=== PATIENT | female | born 1970 | race Caucasian/White ===

== ENCOUNTER 2022-10-31 10:03 | Outpatient (AMB) | payer BC, SELFPAY ==
--- NOTE | 2022-10-31 10:06 | A.OFFPC_ITS ---
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 Supervisor Waterproofing Required: No Accompanied by: Self / Same As Patient Allergies cephalexin [From Keflex] Allergy (Mild, Verified 10/31/22 10:24) Hives Medication List - Last Reconciled 10/31/22 by Laila Davalos MD dextroamphetamine-amphetamine 12.5 mg (Adderall) 12.5 mg PO BID fluconazole PO levonorgestrel (Mirena) intrauterine lisinopril 10 mg PO DAILY loratadine 10 mg PO DAILY Tobacco use date assessed: 10/31/22 Dental Screening Dental Screen Date: 10/31/22 Did you have a dental visit in the last 12 months?: Yes Did you have a dental problem in the last 6 months where you did not have access to dental care?: No Was dental information given to patient?: Patient has dentist 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 She has hypertension, and has been told that she has ADHD but has never been fully evaluated. Currently taking lisinopril 10 mg daily and Adderall 12.5 mg 1 tablet twice a day. Moved here from [place], has been took a new job here at [employer]. Patient states that she has 6 children, all home school, 3 of them her own and 3 of them adopted and with disabilities. Patient states that 1 of her child has mental health issues, currently in a Behavioral facility at present time. Moving to a new place has been very stressful, and she is starting to feel overwhelmed, has been finding it difficult to keep her focus and concentration with her day-to-day activities. Would like to be referred and evaluated for ADD and see if she can be placed back on her Adderall, which has helped be more focused in her day-to-day activities. [facility] Medical History (Updated 10/31/22 @ 11:07 by Laila Davalos MD) Essential hypertension Family history of colon cancer ADD (attention deficit disorder) Celiac disease Dysfunctional uterine bleeding Surgical History (Updated 10/31/22 @ 10:51 by Laila Davalos MD) Hx of colonoscopy S/P D&C (status post dilation and curettage) S/P dental synagogue Family History Mother Breast CA HTN (hypertension) Glaucoma Uterine cancer Father Skin cancer Frontal lobe dementia Brother Substance abuse Paternal Grandmother Mental health problem Maternal Grandfather Colon cancer Maternal Grandmother Breast CA Paternal Grandfather Myocardial infarction Coronary artery disease Social History Housing: House Alcohol intake: current Alcohol intake frequency: holidays/special occasions only Alcohol type: wine Patient Tobacco Use Status: Never used Tobacco e-Cigarette/Vaping Use: Never Used Second Hand Smoke Exposure: No service: No Current occupational status: unemployed 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 unsure date ) Questionnaire PHQ-9 Over the last 2 weeks, how often have you been bothered by any of the following problems? 1. Little interest or pleasure in doing things: not at all 2. Feeling down, depressed, or hopeless: not at all 3. Trouble falling or staying asleep, or sleeping too much: several days 4. Feeling tired or having little energy: not at all 5. Poor appetite or overeating: not at all 6. Feeling bad about yourself - or that you are a failure or have let yourself or your family down: not at all 7. Trouble concentrating on things, such as reading the newspaper or watching television: several days 8. Moving or speaking so slowly that other people could have noticed. Or the opposite - being so fidgety or restless that you have been moving around a lot more than usual: not at all 9. Thoughts that you would be better off or of hurting yourself in some way : not at all Total score: 2 Depression Screening Interpretation: Negative 93836 - PHQ-9 Billing: Yes Source: Developed by Drs. Marcelino Cisneros, Nakul Quijano and colleagues, with an educational bindu from [employer]. Thrive Questionnaire Date Thrive assessed: 10/31/22 I am a: Patient What is your living situation today?: I have a steady place to live Within the past 12 months, did the food you bought not last and you didn't have the money to get more?: Never true Within the past 12 months, did you worry whether your food would run out before you got money to buy more?: Never true Do you have trouble paying for medicines?: No Do you have trouble getting transportation to medical appointments?: No Do you have trouble paying your heating and electricity bill?: No Do you have trouble taking care of your child, family member or friend?: No Do you have trouble with day-to-day activities such as bathing, preparing meals, shopping, managing finances, etc.?: No Are you currently unemployed and looking for a job?: No Are you interested in more education?: No Please select the resources that you would like help with: None Currently or been in a relationship where the following occur: no concerns reported AUDIT C Alcohol Use Questionnaire (AUDIT-C) 1. How often do you have a drink containing alcohol?: Monthly or less 2. How many drinks containing alcohol do you have on a typical day when you are drinking?: 1 or 2 3. How often do you have six or more drinks on one occasion?: Never Total Score: 1 SHANTANU-7 AMB Questionnaire SHANTANU-7 Feeling nervous, anxious, or on edge: 1 = Several days Not being able to stop or control worryin = Several days Worrying too much about different things: 0 = Not at all Trouble relaxin = Several days Being so restless that it is hard to sit still: 1 = Several days Becoming easily annoyed or irritable: 0 = Not at all Feeling afraid as if something awful might happen: 0 = Not at all Total SHANTANU-7 score (0-4 normal; 5-9 mild; 10-14 moderate; 15-21 severe): 4 Source: Developed by Drs. Marcelino Cisneros, Nakul Quijano and colleagues, with an educational bindu from [employer]. SHANTANU-7 Assessment Billing SHANTANU-7 Assessment Tool: SHANTANU-7 Assessment 25652 Review of Systems Const Denies body aches, Denies daytime sleepiness, Denies difficulty sleeping, Denies fatigue, Denies fever(s), Denies headache(s) and Denies malaise Eyes Details: [facility] eye care Reports no additional complaints ENT Reports no additional complaints, Denies vertigo, Denies dizziness and Denies headache(s) Card Denies chest pain at rest, Denies chest pain with activity and Reports rapid heart rate (intermittent) Resp Reports no additional complaints GI Reports no additional complaints Reports no additional complaints Musc Reports no additional complaints, Denies abnormal gait, Denies numbness and Denies tingling Neuro Denies abnormal gait, Denies behavioral changes, Denies vertigo, Denies dizzi ness, Denies headache(s), Denies focal weakness, Denies numbness, Denies convulsions and Denies tingling Psych Denies behavioral changes Endo Denies fatigue Garry/Lymph Reports no additional complaints Aller/Immun Reports no additional complaints Physical exam (Primary Care) Vital Signs: Last Vital Signs Pulse 110 H 10/31/22 10:09 BP 130/70 10/31/22 10:09 Pulse Ox 98 10/31/22 10:09 Oxygen Delivery Method Room Air 10/31/22 10:09 BMI result Body Mass Index 21.4 Tobacco/Smoking Status: Tobacco use Status Tobacco use date assessed 10/31/22 10/31/22 10:19 Patient Tobacco Use Status Never used Tobacco 10/31/22 10:19 e-Cigarette/Vaping Use Never Used 10/31/22 10:19 PHQ-9: PHQ-9 Score PHQ-9: Total score 2 10/31/22 11:03 Depression Screening Interpretation: Negative Thrive Assessment: Date of Thrive Assessment Date Thrive assessed 10/31/22 10/31/22 10:22 Currently or been in a relationship where the following occur: no concerns reported Const General: comfortable, no acute distress and alert Orientation/consciousness: patient oriented x3 HENMT Ears: external ears normal, TM's normal bilaterally and EAC's normal General nose exam: Normal external nose present and No nasal discharge present Mouth: Normal oral and palatal mucosa present, oropharynx normal and moist mucous membranes Eyes General: appearance normal, both eyes and all related structures Conjunctivae: conjunctivae normal Sclerae: sclerae normal Pupils: Equal, round and reactive pupils present EOM: EOMs intact bilaterally Neck Neck: Yes full ROM, Yes no lymphadenopathy and Yes supple Resp Effort & Inspection: normal respiratory effort and able to speak in complete sentences Auscultation: clear to auscultation bilaterally Cardio Heart sounds: S1 normal heart sound present and S2 normal heart sound present GI Palpation (GI): Soft to palpation, nontender and no masses Auscultation: normal bowel sounds Back/Spine/Pelvis Back: No back tenderness Skin General skin exam: no rashes or lesions noted Neuro General: patient oriented x3, gait normal, tone normal, moves all extremities, Normal light touch and pain sensation and no focal motor deficits Cranial nerves: Yes CN's II-XII intact bilaterally and Yes Equal, round and reactive pupils present Cognition (Neuro): normal cognition Extrem General: Yes full ROM, Yes no joint enlargement, Yes no clubbing, cyanosis or edema and Yes no calf tenderness Psych Appearance: grossly normal and well kempt Mental Status: mental status grossly normal Speech and movement: Normal speech and movement present Affect: normal affect Attitude: cooperative Thought process: Normal thought process present Thought content: Normal thought content present and suicidality Assessment and Plan Assessment & Plan (1) Celiac disease: Code(s): K90.0 - Celiac disease Plan: Referred to GI Clinic for further evaluation management. (2) Family history of colon cancer: Code(s): Z80.0 - Family history of malignant neoplasm of digestive organs Plan: Referral to GI Clinic for evaluation for screening colonoscopy (3) Dysfunctional uterine bleeding: Code(s): N93.8 - Other specified abnormal uterine and vaginal bleeding Plan: Will check CBC, referred to OBGYN for consultation (4) Cervical cancer screening: Code(s): Z12.4 - Encounter for screening for malignant neoplasm of cervix Plan: Referral to OBGYN for her routine Pap and pelvic exam (5) Essential hypertension: Code(s): I10 - Essential (primary) hypertension Plan: Blood pressure at goal of less than 130/80. Continue with lisinopril 10 mg daily. Reinforced importance of following a low sodium diet, getting regular exercise, and lowering stress levels. (6) Tachycardia: Code(s): R00.0 - Tachycardia, unspecified Plan: CBC, TSH with free T4 and compressive metabolic panel ordered. EKG done today showed presence of sinus tachycardia with no acute ST-T changes (7) ADD (attention deficit disorder): Code(s): F98.8 - Other specified behavioral and emotional disorders with onset usually occurring in childhood and adolescence Plan: Referred to mental health counselor for assistance in getting in to be evaluated for possible ADD, and treated accordingly Orders: Orders MM screening mammo BI 10/31/22 Z12.31 - Encounter for screening mammogram for malignant neoplasm of breast Vitamin D 25-OH Total 10/31/22 I10 - Essential (primary) hypertension, N93.8 - Other specified abnormal uterine and vaginal bleeding, K90.0 - Celiac disease, R00.0 - Tachycardia, unspecified Complete Blood Count Auto Diff 10/31/22 I10 - Essential (primary) hypertension, N93.8 - Other specified abnormal uterine and vaginal bleeding, K90.0 - Celiac disease, R00.0 - Tachycardia, unspecified AMB EKG-In Office 10/31/22 R00.0 - Tachycardia, unspecified, I10 - Essential (primary) hypertension Lipid Panel 10/31/22 I10 - Essential (primary) hypertension, N93.8 - Other specified abnormal uterine and vaginal bleeding, K90.0 - Celiac disease, R00.0 - Tachycardia, unspecified Comprehensive Mason. Panel Fast 10/31/22 I10 - Essential (primary) hypertension, N93.8 - Other specified abnormal uterine and vaginal bleeding, K90.0 - Celiac disease, R00.0 - Tachycardia, unspecified TSH reflex Free T4 10/31/22 I10 - Essential (primary) hypertension, N93.8 - Other specified abnormal uterine and vaginal bleeding, K90.0 - Celiac disease, R00.0 - Tachycardia, unspecified Referrals RESTAURANT HOST/HOSTESS Referral N93.8 - Other specified abnormal uterine and vaginal bleeding, Z12.4 - Encounter for screening for malignant neoplasm of cervix Gastroenterology Referral K90.0 - Celiac disease, Z80.0 - Family history of malignant neoplasm of digestive organs, Z98.890 - Other specified postprocedural states Medications: New loratadine 10 mg PO DAILY levonorgestrel (Mirena) intrauterine Coding Level of Care Code New Pt Level 4 (03764) Diagnoses Celiac disease K90.0 Family history of colon cancer Z80.0 Dysfunctional uterine bleeding N93.8 Cervical cancer screening Z12.4 Essential hypertension I10 Tachycardia R00.0 ADD (attention deficit disorder) F98.8 Additional Codes SHANTANU-7 Assessment Billing - SHANTANU-7 Assessment Tool: SHANTANU-7 Assessment 85296 ([id number])
[2022-10-31 10:09] VITALS: BP 130/70; PULSE 110; O2SAT 98; BMI 21.4
== END 2022-10-31 12:11 | disposition home or self-care (01) ==
PROVIDERS: Visit Provider Internal Medicine
DX: I10 Essential (primary) hypertension (principal); K90.0 Celiac disease; Z80.0 Family history of malignant neoplasm of digestive organs; N93.8 Other specified abnormal uterine and vaginal bleeding; R00.0 Tachycardia, unspecified; F98.8 Other specified behavioral and emotional disorders with onset usually occurring in childhood and adolescence
CPT/HCPCS: 99204

== ENCOUNTER 2022-12-06 06:31 | Outpatient (REF) | payer BC, SELFPAY ==
[2022-12-06 12:13] LABS: MANUAL DIFF FLAG NO
[2022-12-06 12:27] LABS: Eosinophils Absolute Auto 0.1 X10*3/uL (0.0-0.4); Eosinophils Percent Auto 2.2 % (0-4); Hemoglobin 14.1 g/dl (12.0-16.0); Imm Gran Abs Auto 0.01 X10*3/uL (0.00-0.03); Imm Gran Pct Auto 0.2 % (0.0-0.4); Lymphocytes Percent Auto 25.1 % (20-40); Mean Corpuscular HGB Conc 33.6 g/dl (31.0-35.0); Mean Corpuscular Hemoglobin 33.2 pg (27.0-33.0); Mean Corpuscular Volume 98.8 fL (80.0-98.0); Mean Platelet Volume 10.5 fL (9.4-12.3); Monocytes Absolute Auto 0.6 X10*3/uL (0.1-1.2); Monocytes Percent Auto 13.8 % (2-11); Neutrophils Absolute Auto 2.4 x10*3/uL (2.0-8.3); Neutrophils Percent Auto 57.7 % (45-73); Platelet Count 243 X10*3/uL (160-400); Red Blood Count 4.25 X10*6/uL (4.20-5.50); Red Cell Distribution Width 11.9 % (11.0-16.0); White Blood Count 4.1 X10*3/uL (4.8-10.8)
[2022-12-06 13:09] LABS: Alanine Aminotransferase 316 U/L (0-31); Albumin Level 4.9 g/dL (3.5-5.0); Alkaline Phosphatase 152 U/L (39-117); Anion Gap 13 (12-20); Aspartate Amino Transferase 330 U/L (5-31); Bilirubin Total 0.6 mg/dL (0.0-1.0); Blood Urea Nitrogen 15 mg/dL (9-16); Calcium 10.8 mg/dL (8.4-10.2); Carbon Dioxide 28 mmol/L (22-29); Chloride 103 mmol/L (96-108); Cholesterol 355 mg/dL (<200); Estimated Glomerular Filt Rate > 60; Glucose Fasting 100 mg/dL (60-99); HDL Cholesterol 110 mg/dL (>40); LDL Cholesterol Calculated 223 mg/dL (<100); Potassium 4.3 mmol/L (3.3-5.1); Sodium 140 mmol/L (135-145); Total Protein 7.6 g/dL (6.5-8.0); Triglycerides 111 mg/dL (<150)
[2022-12-06 13:14] LABS: TSH reflex Free T4 2.43 uIU/mL (0.32-4.0); Vitamin D 25-OH Total 91.9 ng/mL (>30)
== END 2022-12-06 06:32 | disposition home or self-care (01) ==
LOC: HO.HMGCLDS 06:31
PROVIDERS: PCP Internal Medicine; Visit Provider Internal Medicine
DX: I10 Essential (primary) hypertension (principal); N93.8 Other specified abnormal uterine and vaginal bleeding; R00.0 Tachycardia, unspecified; K90.0 Celiac disease
CPT/HCPCS: 36415; 80053; 80061; 82306; 84443; 85025

== ENCOUNTER 2022-12-12 06:46 | Outpatient (REF) | payer BC, SELFPAY ==
[2022-12-12 12:02] LABS: Gamma Glutamyl Transpeptidase 1241 U/L (7-33)
[2022-12-13 04:27] LABS: HBS Num1 77.52 mIU/mL (0-7.99); HBc Num1 0.05 S/CO (0.00-0.79); HBsAGNum1 0.27 S/CO (0.00-0.99); Hepatitis B Core Antibody Nonreactive (Nonreactive); Hepatitis B Surface Antigen Negative (Negative); ~HepC Num1 0.16 S/CO (0.00-0.79); ~Hepatitis B Surface Antibody REACTIVE (Nonreactive); ~Hepatitis C Antibody Nonreactive (Nonreactive)
[2022-12-14 05:03] LABS: Lyme Abs Screen <0.90 index
[2022-12-14 16:19] LABS: Calcium (PTHI) 9.8 mg/dL (8.6-10.4); PTHI 27 pg/mL (16-77)
[2022-12-16 02:44] LABS: Calcium, Ionized 5.1 mg/dL (4.7-5.5)
== END 2022-12-12 06:47 | disposition home or self-care (01) ==
LOC: HO.HMGCLDS 06:46
PROVIDERS: PCP Internal Medicine; Visit Provider Internal Medicine
DX: R74.01 Elevation of levels of liver transaminase levels (principal); I10 Essential (primary) hypertension; E83.52 Hypercalcemia; E78.5 Hyperlipidemia, unspecified
CPT/HCPCS: 36415; 82330; 82977; 83970; 86617; 86618; 86704; 86706; 86803; 87340

== ENCOUNTER 2022-12-22 08:51 | Outpatient (REF) | payer BC, SELFPAY | END 2022-12-22 08:52 | disposition home or self-care (01) | LOC: HO.HMGCX 08:51 | PROVIDERS: PCP Internal Medicine; Visit Provider Internal Medicine | DX: R74.01 Elevation of levels of liver transaminase levels (principal); E78.5 Hyperlipidemia, unspecified | CPT/HCPCS: 76700 ==

== ENCOUNTER 2023-01-01 07:47 | Outpatient (AMB) | payer BC, SELFPAY ==
--- NOTE | 2023-01-01 07:48 | MHC.OFFVIS ---
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 No complaints. The patient had Mirena IUD inserted in 2019 since then has amenorrhea Last Pap/HPV was many years ago Last Mammogram was more than 1 year ago, the patient scheduled for another mammogram in 2 weeks Last Colonoscopy was 5 years ago, the patient is scheduled for a GI consult for screening colonoscopy in 2 weeks PFS Medical History Hypercalcemia Hyperlipidemia LDL goal <130 Elevated transaminase level Essential hypertension Family history of colon cancer ADD (attention deficit disorder) Celiac disease Dysfunctional uterine bleeding Surgical History Hx of colonoscopy S/P D&C (status post dilation and curettage) S/P dental islam Family History Mother Breast CA HTN (hypertension) Glaucoma Uterine cancer Father Skin cancer Frontal lobe dementia Brother Substance abuse Paternal Grandmother Mental health problem Maternal Grandfather Colon cancer Maternal Grandmother Breast CA Paternal Grandfather Myocardial infarction Coronary artery disease Social History Housing: House Alcohol intake: current Alcohol intake frequency: holidays/special occasions only Alcohol type: wine Patient Tobacco Use Status: Never used Tobacco e-Cigarette/Vaping Use: Never Used Second Hand Smoke Exposure: No service: No Current occupational status: unemployed 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, 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 Current occupational exposures/hazards: No Cognitive needs: No Hearing needs: No Vision needs: Yes Female Reproductive History Menstrual control method: progestin IUCD Total pregnancies: 4 Full term: 4 Number of Living Children: 7 Review of Systems Const All systems reviewed & are unremarkable except as noted in HPI and below Card Reports as per HPI Resp Reports as per HPI GI Reports as per HPI and Reports no additional complaints Reports as per HPI Physical Exam Vital Signs: BMI result Body Mass Index 21.3 Const General: cooperative, healthy appearing and comfortable Chest Chest palpation & inspection: normal inspection of the chest and normal palpation of entire chest wall Breast/axilla inspection: normal inspection of the breasts and normal inspection of the axillae Breast/axilla palpation: normal palpation of the breasts, normal palpation of the axillae and no axillary lymphadenopathy Resp Effort & Inspection: normal respiratory effort Auscultation: clear to auscultation bilaterally Percussion: percussion normal Cardio Palpation: normal PMI Rate: regular rate Rhythm: regular rhythm Heart sounds: no murmurs and no rubs Peripheral pulses: Peripheral pulses 2+ throughout GI Inspection: Yes normal to inspection Palpation (GI): Soft to palpation, nontender, no guarding, not rigid and No hepatosplenomegaly present Percussion: Yes normal to percussion Auscultation: normal bowel sounds Rectal Exam - Female: deferred General: Yes bladder normal to palpation External Female Exam: No lesion Speculum Exam - Vagina: normal appearance of the vagina, normal palpation, normal vaginal discharge and not erythematous Speculum Exam - Cervix: normal appearance of the cervix and normal palpation Bimanual exam- vagina & uterus: normal bimanual exam, normal palpation, uterine size normal, bladder normal to palpation, consistency normal and normal palpation Bimanual Exam- Adnexa, other: normal adnexae, no masses and no tenderness Office Procedures IUD Insert/Removal Details Details: Counseling/Consent: After discussing with the patient the risks of the procedure including bleeding, infection, scar tissue formation, , possible injury to blood vessels or nerves, chronic arm pain, blood transfusion, and irregular unpredictable bleeding Alternative options were discussed with the patient including but not limited: Do nothing. The patient signed the consent and agreed with the plan; all questions answered. Urine test was done in the office and was negative Preop dx: Requesting IUD removal Op: IUD removal Post op dx: same EBL= 10 cc Procedure: The patient was put in the dorsal lithotomy position a speculum was inserted in the vagina the IUD thread identified. Using a Marli clamp the thread was grasped and the IUD pulled out with no complications. The patient tolerated the procedure well and was advised to use a different method for contraception. Discharge instructions: Instructions were given to the pt to call if temp>100.4, abdominal pain heavy vaginal bleeding, n/v occur. The patient verbalized understanding and all questions answered. This note was generated with a voice recognition program. Some errors may have been overlooked during the review of this note. Sometimes these errors may affect the content or meaning of a given sentence. 97099-DLF Removal Procedure code (CPT) selection complete Assessment & Plan Assessment & Plan (1) Well woman exam: Code(s): Z01.419 - Encounter for gynecological examination (general) (routine) without abnormal findings Plan: Co testing done. Counseled the patient about the recommended dietary allowance of 1200 mg of Calcium & 600 IU of vitamin D. Mammogram ordered and scheduled in 2. The patient is scheduled in 2 weeks with GI for a consult regarding screening colonoscopy . The patient was instructed to perform monthly self-breast exams and schedule annual exam in a year. All questions answered and the patient verbalized understanding. (2) Family history of breast cancer: Code(s): Z80.3 - Family history of malignant neoplasm of breast Plan: Calculated [facility] lifetime breast cancer risk was 17.3%. Discussed the patient elevated breast cancer but not above 20% therefore will hold off high-risk protocol unless mammogram report calculated breast cancer risk is above 20%. (3) Encounter for IUD removal: Code(s): Z30.432 - Encounter for removal of intrauterine contraceptive device Plan: Discussed the patient Mirena IUD benefits and risks. Average age of menopause being 53. Potential risk of long-term use of Mirena IUD with increasing breast cancer. After discussion all the pros and cons , risks and benefits of keeping IUD in utero versus taking it out, the patient requested IUD removal, IUD removed, see procedure note. Instructions given the patient to call in case of vaginal bleeding. All questions answered, the patient verbalized understanding Orders: Orders Pap Smear Today Z01.419 - Encounter for gynecological examination (general) (routine) without abnormal findings Coding Level of Care Code New Pt Prev Care 40-64y(16741) Diagnoses Well woman exam Z01.419 Family history of breast cancer Z80.3 Encounter for IUD removal Z30.432 CPT Codes Details - CPT: 41314-ZSS Removal ([id number])
[2023-01-01 07:51] VITALS: BP 102/60; BMI 21.3
== END 2023-01-01 08:27 | disposition home or self-care (01) ==
PROVIDERS: PCP Internal Medicine; Visit Provider Obstetrics & Gynecology
DX: Z01.419 Encounter for gynecological examination (general) (routine) without abnormal findings (principal); Z80.3 Family history of malignant neoplasm of breast; Z30.432 Encounter for removal of intrauterine contraceptive device
CPT/HCPCS: 58301; 99386

== ENCOUNTER 2023-01-01 07:47 | Outpatient (REF) | payer BC, SELFPAY ==
[2023-01-04 04:09] LABS: HPV mRNA E6/E7 rflx Not Detected (Not Detected)
== END 2023-01-01 07:48 | disposition home or self-care (01) ==
LOC: HO.LNP 07:47
PROVIDERS: PCP Internal Medicine; Visit Provider Obstetrics & Gynecology
DX: Z30.432 Encounter for removal of intrauterine contraceptive device (principal)
CPT/HCPCS: 58301; 87624; 88142

== ENCOUNTER 2023-01-03 09:35 | Outpatient (AMB) | payer BC, SELFPAY ==
--- NOTE | 2023-01-03 09:46 | A.OFFVIS_ITS ---
Intake Intake Visit Reasons: Celiac Intake Note: Patient follow up for Celiac disease. Patient cc: diarrhea and nauseas on and off, also abdominal pain with bloating every 2 weeks. Deniesany other GI issues. Air Intelligence Specialist Required: No Allergies cephalexin [From Keflex] Allergy (Mild, Verified 01/03/23 09:46) Hives HPI HPI Comments History of Present Illness Details 52 y.o F with PMH of celiac disease who is here to establish care for celiac disease. Reports getting diagnosed with celiac in 2009 for abdominal pain, bloating and diarrhea at [facility]. Reports anemia in 2019 which was attributed to abnormal uterine bleeding which has now resolved since getting IUD. Has been adhering to GFD. No fam hx of celiac but grandmother had RA. Pt also reports pain in small joints of hands. Currently main sx are intermittent diarrhea without any abdominal pain or cramping. Every 1-2 weeks she will have a bout of having 5-6 loose BMs in the morning spaced out by 5-10 minutes and then it would resolve. Of note, sx started shortly after getting her hormonal IUD. However, reports she just got it out 2 days ago. Of note, on review of labs also noted to have elevated LFTs. Does not report drinking heavily. 1-2 glasses of wine on weekends. In terms of CRC screening, last colonoscopy was 5 years ago. Patient reports having 2 polyps removed and being given a 5 year interval. [facility] Medical History Hypercalcemia Hyperlipidemia LDL goal <130 Elevated transaminase level Essential hypertension Family history of colon cancer ADD (attention deficit disorder) Celiac disease Dysfunctional uterine bleeding Surgical History Hx of colonoscopy S/P D&C (status post dilation and curettage) S/P dental restorationism Family History Mother Breast CA HTN (hypertension) Glaucoma Uterine cancer Father Skin cancer Frontal lobe dementia Brother Substance abuse Paternal Grandmother Mental health problem Maternal Grandfather Colon cancer Maternal Grandmother Breast CA Paternal Grandfather Myocardial infarction Coronary artery disease Social History Housing: House Alcohol intake: current Alcohol intake frequency: holidays/special occasions only Alcohol type: wine Patient Tobacco Use Status: Never used Tobacco e-Cigarette/Vaping Use: Never Used Second Hand Smoke Exposure: No service: No Current occupational status: unemployed 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 Nontoxic appearing Speaking in full sentences No facial asymmetry. Assessment & Plan Assessment & Plan (1) Celiac disease: Code(s): K90.0 - Celiac disease (2) Elevated transaminase level: Code(s): R74.01 - Elevation of levels of liver transaminase levels (3) Personal history of colonic polyps: Code(s): Z86.010 - Personal history of colonic polyps Plan 1. Celiac disease: Fairly well controlled with dietary discretion. Intermittent episodic diarrhea does not appear to be related to celiac disease, and wonder if it was due to the hormonal IUD given temporarility. Patient advised to keep a symptom diary now that the IUD is out. Plan: -labs ordered for macro and micronutrient deficiency monitoring -celiac serology ordered for disease monitoring -will also set her up for an EGD for small-bowel biopsy. 2. Elevated LFTs: In the context of well-controlled celiac disease, do not expect these to be high, and therefore celiac serology ordered as above to correlate. Other differentials include autoimmune hepatitis specially given the extent of transaminase elevation and underlying celiac disease. Hepatitis serology negative. Plan: -repeat LFTs ordered -workup ordered as below for iron overload, Kar's, alpha-1 antitrypsin, autoimmune hepatitis -further evaluation pending results 3. Personal history of polyps Due for colonoscopy, which can be set up at the same time as the upper endoscopy (see above). Plan: -colonoscopy to be booked on an elective basis -split PEG prep instructions reviewed with the patient. She was also given instructions on accessing instructions on line. Follow up after the procedures Orders: Orders IRON PROFILE Today R74.01 - Elevation of levels of liver transaminase levels Ferritin Today R74.01 - Elevation of levels of liver transaminase levels Alpha 1 Anti-trypsin Today R74.01 - Elevation of levels of liver transaminase levels Hepatitis A IgG Today R74.01 - Elevation of levels of liver transaminase levels Hepatitis B Surface Antigen Today R74.01 - Elevation of levels of liver transaminase levels Hepatitis C Antibody Today R74.01 - Elevation of levels of liver transaminase levels Immunoglobulin A Today K90.0 - Celiac disease Immunoglobulin G Today R74.01 - Elevation of levels of liver transaminase levels Liver Kidney Microsomal Ab Today R74.01 - Elevation of levels of liver transaminase levels Vitamin B12 and Folate Today R74.01 - Elevation of levels of liver transaminase levels TSH reflex Free T4 Today R74.01 - Elevation of levels of liver transaminase levels Transglutaminase IgA Today K90.0 - Celiac disease Prothrombin Time INR Today R74.01 - Elevation of levels of liver transaminase levels Liver Panel Today R74.01 - Elevation of levels of liver transaminase levels Mitochondrial Antibody Today R74.01 - Elevation of levels of liver transaminase levels Phosphatidylethanol, Blood Today R74.01 - Elevation of levels of liver transaminase levels Copper, serum Today K90.0 - Celiac disease Magnesium Today K90.0 - Celiac disease Selenium, Serum Today K90.0 - Celiac disease Vitamin B1 Today K90.0 - Celiac disease Vitamin B6 Today K90.0 - Celiac disease Vitamin A Today K90.0 - Celiac disease Ceruloplasmin Today R74.01 - Elevation of levels of liver transaminase levels Hepatitis B Core Antibody Today R74.01 - Elevation of levels of liver transaminase levels Hepatitis B Surface Antibody Today R74.01 - Elevation of levels of liver transaminase levels Smooth Muscle Antibody Today R74.01 - Elevation of levels of liver transaminase levels Gliadin Ab Panel Today K90.0 - Celiac disease FRANCISCO Reflex Titer and Pattern Today R74.01 - Elevation of levels of liver transaminase levels Zinc Today K90.0 - Celiac disease Complete Blood Count no Diff Today K90.0 - Celiac disease Telehealth Telehealth Location of provider rendering services: practice address Location of patient: address on file Patient Identification confirmed using: Name, : Yes Telehealth method: video Patient verbally consented to treatment: Yes Patient verbally consented to billing insurance company: Yes Patient informed of any privacy concerns related to visit: Yes Minutes spent on Phone/Video with Pt.: 20 Coding Level of Care Code Tele New Pt Level 5 (44189) Diagnoses Celiac disease K90.0 Elevated transaminase level R74.01 Personal history of colonic polyps Z86.010
== END 2023-01-03 10:51 | disposition home or self-care (01) ==
LOC: HO.HGI 09:35
PROVIDERS: PCP Internal Medicine; Visit Provider Internal Medicine
DX: K90.0 Celiac disease (principal); R74.01 Elevation of levels of liver transaminase levels; Z86.010 Personal history of colon polyps
CPT/HCPCS: 99202

== ENCOUNTER → 2023-01-03 09:35 | Outpatient (BNVA) | payer BC, SELFPAY | PROVIDERS: PCP Internal Medicine; Visit Provider Internal Medicine ==

== ENCOUNTER 2023-01-03 10:49 | Outpatient (REF) | payer BC, SELFPAY ==
[2023-01-03 13:59] LABS: INTERNATIONAL NORM RATIO 0.9 (0.9-1.1); Prothrombin Time 11.3 SEC (11.1-13.3)
[2023-01-03 14:00] LABS: Hematocrit 43.1 % (37.0-47.0); Hemoglobin 14.2 g/dl (12.0-16.0); Mean Corpuscular HGB Conc 32.9 g/dl (31.0-35.0); Mean Corpuscular Hemoglobin 32.8 pg (27.0-33.0); Mean Corpuscular Volume 99.5 fL (80.0-98.0); Mean Platelet Volume 11.4 fL (9.4-12.3); Platelet Count 264 X10*3/uL (160-400); Red Blood Count 4.33 X10*6/uL (4.20-5.50); Red Cell Distribution Width 11.2 % (11.0-16.0); White Blood Count 5.7 X10*3/uL (4.8-10.8)
[2023-01-03 14:29] LABS: Alanine Aminotransferase 290 U/L (0-31); Albumin Level 4.7 g/dL (3.5-5.0); Alkaline Phosphatase 163 U/L (39-117); Aspartate Amino Transferase 186 U/L (5-31); Bilirubin Direct 0.1 mg/dL (0.0-0.5); Bilirubin Total 0.3 mg/dL (0.0-1.0); Ferritin 894 ng/mL (10-250); Iron 111 mcg/dL (30-160); Percent Iron Saturation 29 % (15-50); TSH reflex Free T4 1.74 uIU/mL (0.32-4.0); Total Iron Binding Capacity 379 mcg/dL (228-428); Total Protein 7.8 g/dL (6.5-8.0); Unsaturated Iron Binding 268 ug/dL
[2023-01-03 14:38] LABS: Vitamin B12 715 pg/mL (200-900)
[2023-01-04 12:04] LABS: Immunoglobulin A 154 mg/dL (47-310); Immunoglobulin G 542 mg/dL (600-1640)
[2023-01-04 14:44] LABS: Anti Nuclear Antibody Screen NEGATIVE (NEGATIVE)
[2023-01-04 16:09] LABS: Alpha 1 Anti-trypsin 182 mg/dL (83-199); Ceruloplasmin 31 mg/dL (18-53)
[2023-01-04 18:18] LABS: Gliadin Deamidated IgA Ab <1.0 U/mL; Gliadin Deamidated IgG Ab <1.0 U/mL; Transglutaminase IgA <1.0 U/mL
[2023-01-05 07:49] LABS: HBS Num1 89.28 mIU/mL (0-7.99); HBc Num1 0.05 S/CO (0.00-0.79); HBsAGNum1 0.34 S/CO (0.00-0.99); Hepatitis A Antibody IgG Nonreactive (Nonreactive); Hepatitis B Core Antibody Nonreactive (Nonreactive); Hepatitis B Surface Antigen Negative (Negative); ~HepC Num1 0.17 S/CO (0.00-0.79); ~Hepatitis A Antibody IgG 0.22 S/CO (0.00-0.99); ~Hepatitis B Surface Antibody REACTIVE (Nonreactive); ~Hepatitis C Antibody Nonreactive (Nonreactive)
[2023-01-05 21:29] LABS: Zinc 92 mcg/dL (60-130)
[2023-01-06 15:20] LABS: Copper, serum 136 mcg/dL (70-175); Selenium, Serum 145 mcg/L (63-160)
[2023-01-07 22:23] LABS: Liver Kidney Microsomal Ab <=20.0 U (<=20.0)
[2023-01-07 22:43] LABS: Smooth Muscle Antibody <20 U (<20)
[2023-01-08 15:23] LABS: Mitochondrial Antibodies NEGATIVE (NEGATIVE)
[2023-01-08 18:34] LABS: Vitamin A 63 mcg/dL (38-98)
[2023-01-09 11:54] LABS: Vitamin B6 12.3 ng/mL (2.1-21.7)
[2023-01-10 14:18] LABS: Vitamin B1 11 nmol/L (8-30)
== END 2023-01-03 10:50 | disposition home or self-care (01) ==
LOC: HO.HMGCLDS 10:49
PROVIDERS: PCP Internal Medicine; Visit Provider Internal Medicine
DX: K90.0 Celiac disease (principal); R74.01 Elevation of levels of liver transaminase levels; Z86.010 Personal history of colon polyps
CPT/HCPCS: 36415; 80076; 80321; 82103; 82390; 82525; 82607; 82728; 82746; 82784; 83540; 83735; 84207; 84255; 84425; 84443; 84590; 84630; 85027; 85610; 86015; 86038; 86258; 86364; 86376; 86381; 86704; 86706; 86708; 86803; 87340

== ENCOUNTER 2023-01-04 10:44 | Outpatient (AMB) | payer BC, SELFPAY ==
[2023-01-04 10:59] VITALS: BP 108/74; PULSE 111; O2SAT 100; BMI 21.4
--- NOTE | 2023-01-04 10:59 | A.OFFPC_ITS ---
Vital Signs 01/04/23 10:59 Height 5 ft 3.5 in Weight 123 lb BMI 21.4 BP 108/74 Blood Pressure Location Lt brachial Position Sitting Pulse 111 H Pulse Source Pulse Oximeter Pulse Oximetry (%) 100 Oxygen Delivery Method Room Air Intake Visit Reasons: Follow up labs and ultrasound Intake Note: pt is here to get her lab results and ultrasound results Allergies cephalexin [From Keflex] Allergy (Mild, Verified 01/06/23 03:37) Hives Medication List - Last Reconciled 01/06/23 by Laila Davalos MD lisinopril 10 mg PO DAILY loratadine 10 mg PO DAILY peg 3350-electrolytes 236-22.74-6.74 -5.86 gram (Golytely) 240 mL PO Q10M Tobacco use date assessed: 01/04/23 Dental Screening Dental Screen Date: 01/04/23 Did you have a dental visit in the last 12 months?: Yes Did you have a dental problem in the last 6 months where you did not have access to dental care?: No Was dental information given to patient?: Patient has dentist HPI Follow up labs and ultrasound HPI Details 52-year-old lady, with hypertension, and diagnosed to have celiac disease several years ago, here today for follow-up she was noted to have markedly elevated transaminases, and elevated GGT, her thyroid stimulating hormone, and hepatitis serology all came back negative. She still is having intermittent episodes of loose stools without any abdominal pain or cramping which she states started after she had her IUD inserted, latter however was just removed 2 days ago. She does not drink heavily, occasionally gets 2 glasses a wine during weekends. Abdominal ultrasound showed presence of stay at hepatitis. Fasting labs also showed presence of markedly elevated lipid levels with the total cholesterol 355 and LDL cholesterol at 223, , and HDL at 110 mg/dL Laboratory Tests 12/06/22 12/06/22 12/06/22 06:44 06:44 06:44 AST 330 H ALT 316 H Alkaline Phosphata se Total Protein Albumin Rvyqf-0-Djacmunacc n Ceruloplasmin Triglycerides 111 Cholesterol 355 H LDL Cholesterol, C alc 223 H HDL Cholesterol 110 12/12/22 12/12/22 01/03/23 06:55 06:55 10:55 WBC 5.7 RBC 4.33 Hgb 14.2 Hct 43.1 MCV 99.5 H MCH 32.8 MCHC 32.9 RDW 11.2 Plt Count 264 PT 11.3 INR 0.9 Magnesium 2.0 Iron 111 TIBC 379 % Saturation 29 Unsat Iron Binding 268 Ferritin 894 H Total Bilirubin Direct Bilirubin GGT 1241 H PTH Intact 27 Calcium (PTH Intac t) 9.8 01/03/23 01/03/23 01/03/23 10:55 10:55 10:55 Total Bilirubin 0.3 Direct Bilirubin 0.1 GGT AST 186 H ALT 290 H Alkaline Phosphata se 163 H Total Protein 7.8 Albumin 4.7 Vfqmp-8-Faehfrlbnt n 182 Ceruloplasmin 31 Vitamin B12 715 Folate 12.0 01/03/23 10:55 TSH 1.74 Zinc 92 Hepatitis A IgG Ab Nonreactive Hep Bs Antigen Negative Hep Bs Antibody REACTIVE Hep B Core Total A b Nonreactive Hepatitis C Ab (EI A) Nonreactive PFS Medical History (Updated 01/06/23 @ 03:54 by Laila Davalos MD) Hypercalcemia Hyperlipidemia LDL goal <130 Elevated transaminase level Essential hypertension Family history of colon cancer ADD (attention deficit disorder) Celiac disease Dysfunctional uterine bleeding Surgical History Hx of colonoscopy S/P D&C (status post dilation and curettage) S/P dental jewish Family History Mother Breast CA HTN (hypertension) Glaucoma Uterine cancer Father Skin cancer Frontal lobe dementia Brother Substance abuse Paternal Grandmother Mental health problem Maternal Grandfather Colon cancer Maternal Grandmother Breast CA Paternal Grandfather Myocardial infarction Coronary artery disease Social History Housing: House Alcohol intake: current Alcohol intake frequency: holidays/special occasions only Alcohol type: wine Patient Tobacco Use Status: Never used Tobacco e-Cigarette/Vaping Use: Never Used Second Hand Smoke Exposure: No service: No Current occupational status: unemployed 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, 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 How often do you have a drink containing alcohol?: 2-4 times a month 2. How many drinks containing alcohol do you have on a typical day when you are drinking?: 1 or 2 3. How often do you have six or more drinks on one occasion?: Never Total Score: 2 SHANTANU-7 AMB Questionnaire SHANTANU-7 Feeling nervous, anxious, or on edge: 1 = Several days Not being able to stop or control worryin = Several days Worrying too much about different things: 0 = Not at all Trouble relaxin = Several days Being so restless that it is hard to sit still: 1 = Several days Becoming easily annoyed or irritable: 0 = Not at all Feeling afraid as if something awful might happen: 0 = Not at all Total SHANTANU-7 score (0-4 normal; 5-9 mild; 10-14 moderate; 15-21 severe): 4 Source: Developed by Drs. Marcelino Cisneros, Lien Ramirez, Nakul Delatorre and colleagues, with an educational bindu from [employer]. Review of Systems Const Denies fever(s), Denies headache(s) and Denies malaise Eyes Details: [facility] eye care Reports no additional complaints ENT Denies vertigo, Denies dizziness and Denies headache(s) Card Denies chest pain at rest, Denies chest pain with activity and Reports rapid heart rate (intermittent) Resp Reports no additional complaints GI Reports as per HPI Reports no additional complaints Musc Denies abnormal gait, Denies numbness and Denies tingling Neuro Denies abnormal gait, Denies behavioral changes, Denies vertigo, Denies dizziness, Denies headache(s), Denies focal weakness, Denies numbness, Denies convulsions and Denies tingling Psych Denies behavioral changes Endo Reports no additional complaints Garry/Lymph Reports no additional complaints Aller/Immun Reports no additional complaints Physical exam (Primary Care) Vital Signs: Last Vital Signs Pulse 111 H 01/04/23 10:59 BP 108/74 01/04/23 10:59 Pulse Ox 100 01/04/23 10:59 Oxygen Delivery Method Room Air 01/04/23 10:59 BMI result Body Mass Index 21.4 Tobacco/Smoking Status: Tobacco use Status Tobacco use date assessed 01/04/23 01/04/23 11:04 Patient Tobacco Use Status Never used Tobacco 01/04/23 11:04 e-Cigarette/Vaping Use Never Used 01/04/23 11:04 Thrive Assessment: Date of Thrive Assessment Date Thrive assessed 10/31/22 01/04/23 11:04 Const General: comfortable, no acute distress and alert Orientation/consciousness: patient oriented x3 HENMT General nose exam: Normal external nose present and No nasal discharge present Mouth: Normal oral and palatal mucosa present, oropharynx normal and moist mucous membranes Eyes General: appearance normal, both eyes and all related structures Conjunctivae: conjunctivae normal Sclerae: sclerae normal Pupils: Equal, round and reactive pupils present EOM: EOMs intact bilaterally Neck Neck: Yes full ROM, Yes no lymphadenopathy and Yes supple Resp Effort & Inspection: normal respiratory effort and able to speak in complete sentences Auscultation: clear to auscultation bilaterally Cardio Heart sounds: S1 normal heart sound present and S2 normal heart sound present GI Palpation (GI): Soft to palpation, nontender and no masses Auscultation: normal bowel sounds Back/Spine/Pelvis Back: No back tenderness Skin General skin exam: no rashes or lesions noted Neuro General: patient oriented x3, gait normal, tone normal, moves all extremities, Normal light touch and pain sensation and no focal motor deficits Cranial nerves: Yes CN's II-XII intact bilaterally and Yes Equal, round and reactive pupils present Cognition (Neuro): normal cognition Extrem General: Yes full ROM, Yes no joint enlargement, Yes no clubbing, cyanosis or edema and Yes no calf tenderness Assessment and Plan Assessment & Plan (1) Hyperlipidemia LDL goal <130: Code(s): E78.5 - Hyperlipidemia, unspecified Plan: Will hold off on giving any statin at present time due to elevated liver enzymes. Strongly advised patient to adhere to a low-cholesterol diet, start getting regular exercise, (2) Elevated transaminase level: Code(s): R74.01 - Elevation of levels of liver transaminase levels Plan: Abstain from alcohol. Recently seen by GI, who states that celiac disease is fairly well controlled and does not feel that this was the reason for her recurrent diarrhea. Celiac serology and repeat LFT were ordered as well as workup for iron overload as her ferritin was elevated. Her hepatitis serology all came back negative, currently ordered a workup for possible autoimmune hepatitis . She is to be scheduled for an EGD for small-bowel biopsy. (3) Essential hypertension: Code(s): I10 - Essential (primary) hypertension Plan: Blood pressure at goal of less than 130/80. Continue with current medication. Reinforced importance of following a low sodium diet, getting regular exercise, and lowering stress levels. Patient noted to have elevated heart rate, likely due to anxiety. CBC, TSH all came back within normal limits Coding Level of Care Code Est Pt Level 4 (32019) Diagnoses Hyperlipidemia LDL goal <130 E78.5 Elevated transaminase level R74.01 Essential hypertension I10
== END 2023-01-04 12:41 | disposition home or self-care (01) ==
PROVIDERS: PCP Internal Medicine; Visit Provider Internal Medicine
DX: E78.5 Hyperlipidemia, unspecified (principal); R74.01 Elevation of levels of liver transaminase levels; I10 Essential (primary) hypertension
CPT/HCPCS: 99214

== ENCOUNTER → 2023-02-05 12:00 | Outpatient (BNV) | payer BC, SELFPAY | PROVIDERS: PCP Internal Medicine; Visit Provider Radiology Diagnostic Radiology | DX: Z12.31 Encounter for screening mammogram for malignant neoplasm of breast (principal) | CPT/HCPCS: 77063; 77067 ==

== ENCOUNTER 2023-02-05 12:10 | Outpatient (REF) | payer BC, SELFPAY ==
--- NOTE | ~2023-02-05 | MM_ITS ---
EXAMINATION: MM SCREENING DIGITAL BREAST TOMOSYNTHESIS, BILATERAL CLINICAL INFORMATION: Screening. Asymptomatic. COMPARISON: Mammography: This study is compared with prior exams dating back to TECHNIQUE: Digital breast tomosynthesis is performed in both the craniocaudal and mediolateral oblique views along with computer-aided detection (CAD). Synthesized 2D images are generated from the tomosynthesis. FINDINGS: There are scattered areas of fibroglandular density (ACR BI-RADS breast composition Category b). There are no significant masses, abnormal calcifications, or other abnormalities. MM/MM tomosynthesis screening BI IMPRESSION: No mammographic evidence of malignancy. ASSESSMENT: BI-RADS BI-RADS 1 - Negative RECOMMENDATION: Routine annual mammography screening. 1 year F/U This examination should not preclude the clinical evaluation of a suspicious palpable abnormality. This patient's information was entered into a reminder system with a target due date for their next mammogram.
== END 2023-02-05 12:11 | disposition home or self-care (01) ==
LOC: HO.MAMMO 12:10
PROVIDERS: PCP Internal Medicine; Visit Provider Internal Medicine
DX: Z12.31 Encounter for screening mammogram for malignant neoplasm of breast (principal)
CPT/HCPCS: 77063; 77067

== ENCOUNTER 2023-03-06 09:40 | Outpatient (REF) | payer BC, SELFPAY ==
--- NOTE | ~2023-03-06 | MR_ITS ---
EXAMINATION: MRI ABDOMEN WITH AND WITHOUT CONTRAST CLINICAL INFORMATION: R74.01 - Elevation of levels of liver transaminase levels COMPARISON: 12/22/2002 ultrasound TECHNIQUE: Multiple routine MRI sequences through the abdomen were obtained on a high-field 1.5Tesla MRI. Pre-and postcontrast images with 5.5 mL of Gadavist intravenous contrast were obtained. This included a dynamic contrast-enhanced technique. FINDINGS: Lung bases: There is a round 1.2 cm heterogeneous signal nodule in the right lateral costophrenic sulcus. Interestingly this is T2 dark and relatively heterogeneous on the T1 signal particular. This demonstrates some minimal rim enhancement on the delayed postcontrast images. Etiology is uncertain. Granuloma would be suspected. Liver: The liver is normal in size, shape, and signal. I do not appreciate any suspicious signal dropout on the out of phase imaging. No suspicious focal hepatic lesions seen. Specifically no suspicious arterial phase enhancing lesions or suspicious washout of contrast on later phases. No biliary ductal dilatation. Gallbladder: Gallbladder is unremarkable. No suspicious gallstones or filling defects. No gallbladder wall thickening or pericholecystic inflammatory changes. Pancreas: Pancreas is homogeneous in signal. No pancreatic ductal dilatation or obstruction. No peripancreatic inflammatory changes or fluid. Spleen: Unremarkable Adrenals: Unremarkable Kidneys: Kidneys are normal in size, shape, and signal. No suspicious renal mass lesion seen. No hydronephrosis or perinephric edema. Other: No bulky adenopathy MR/MR abdomen wo/w con IMPRESSION: 1. I do not appreciate any suspicious focal hepatic lesions. No biliary ductal dilatation. 2. There is a 1.2 cm round heterogeneous signal nodule in the right lateral costophrenic sulcus. There is decreased central T2 signal and some very minimal surrounding rim enhancement Etiology is uncertain. Granuloma would be suspected. I have no prior images through the chest in this area to compare to. Chest x-ray may be helpful to determine if this is a calcified granuloma. Alternatively CT scan the chest could be obtained to more completely evaluate this finding.
[2023-03-06] MEDS: gadobutroL 7.5 ML VIAL IVPUSH (10:48)
== END 2023-03-06 09:41 | disposition home or self-care (01) ==
LOC: HO.MRI 09:40
PROVIDERS: PCP Internal Medicine; Visit Provider Internal Medicine
DX: R74.01 Elevation of levels of liver transaminase levels (principal)
CPT/HCPCS: 74183; A9585

== ENCOUNTER 2023-04-19 07:50 | Day surgery (SDC) | payer BC, SELFPAY ==
[2023-04-17 11:05] VITALS: BMI 21.4
[2023-04-19 09:55] VITALS: BMI 20.8
[2023-04-19 10:21] VITALS: BP 127/83; PULSE 78; RESP 16; TEMP 36.8; O2SAT 96
[2023-04-19] MEDS: Lactated Ringers 1,000 ML 80 ML IVCONT (10:24)
--- NOTE | 2023-04-19 11:36 | MHC.SHP ---
Pre-Procedural Eval Section A - 24 Hr Update-Section A only Date of Service: 04/19/23 Section B - Complete if H&P > 30 days Chief Complaint: Personal history of colonic polyps, Celiac disease Details of Present Illness: PMH: Hypercalcemia Hyperlipidemia LDL goal <130 Elevated transaminase level Essential hypertension Family history of colon cancer ADD (attention deficit disorder) Celiac disease Dysfunctional uterine bleeding Surgical History Hx of colonoscopy S/P D&C (status post dilation and curettage) S/P dental religious Allergies: Allergies Allergy/AdvReac Type Severity Reaction Status Date / Time cephalexin [From Keflex] Allergy Mild Hives Verified 01/06/23 03:37 Review of Systems Review of Systems Comment: Ten point ROS negative Exam Exam Comment: Gen appear: No acute distress HEENT: no icterus Chest: No overt resp distress Abd: soft, nontender, nondistended Psych: Stable affect, answering questions appropriately Neuro: A/Ox3 noted to move all extremities spontaneously Ext: no peripheral edema Plan Diagnosis/Plan: Unchanged I have reviewed the history and physical and performed a pertinent physical examination on my patient. No changes have occurred unless specified. Time Spent With Patient Time: Total time managing care of this patient today ____ minutes.
--- NOTE | 2023-04-19 11:37 | P.OP_ITS ---
Operative Note Operative Note Date of Service: 04/19/23 Narrative: Procedure: Upper endoscopy and colonoscopy Indication: Celiac disease, personal hx of polyps Endoscopist: Estella Obrien MD Anesthesia Provider: Dr Jenelle Villalba Anesthesia type: MAC Instrument: Olympus [id number] ?? EGD Procedure:?? The procedure, indications, preparation and potential complications were reviewed with the patient, who indicated understanding and gave written informed consent to proceed. A physical exam was performed. The endoscope was introduced through the mouth, and advanced to the third part of duodenum. The mucosa was carefully examined on slow withdrawal of the endoscope. The patient tolerated the procedure well. There were no immediate complications.? ? EGD Findings:? * Esophagus:? Normal mucosa noted in the entire esophagus. The Z line was at 36 and irregular with the longest salmon colored tongue extending to 34 cm. Cold forceps biopsies were taken to rule out Zaman's esophagus. These will be sent for tissue cypher if dysplasia confirmed on pathology. * Stomach:? Normal mucosa was noted in the stomach. Random cold forceps gastric biopsies were taken to rule out H Pylori infection. * Duodenum:? Normal mucosa was noted in the whole of the examined duodenum. Cold forceps biopsies were taken from duodenal bulb, second and third portion of the duodenum to surveil celiac disease. ? Colonoscopy Procedure: The patient was then turned for the colonoscopy. A d igital rectal exam was performed which was normal. A distal attachment cap was affixed to the tip of the scope and the colonoscope was then inserted through the anus and advanced through the colon to the cecum at 90 cm. Mucosa was carefully examined under high definition white light as the instrument was slowly withdrawn in a retrograde panoramic fashion. Retroflexion was performed in rectum. The procedure was somewhat difficult due to looping in the left colon and required pressure to intubate the cecum. There were no immediate obvious complications. The quality of the prep was BBPS: 2+2+2 = adequate Withdrawal time 8 minutes. Limitations: No limitations. Colonoscopy Findings: Mucosa: Copious liquid stool was noted in the colon which was extensively suctio jessenia. Normal to cecum and terminal ileum. Protruding lesions: * Medium internal hemorrhoids without stigmata of recent bleeding. Impressions:? * Irregular Z line r/o BE (biopsy) * Normal stomach (biopsy) * Normal duodenum (biopsy) * Fair prep * Normal colon mucosa * Hemorrhoids Recommendations: - Follow path results. - If biopsies show BE, follow up EGD will be contingent on presence and extent of dysplasia. - Repeat colonoscopy in 5 years due to prep
[2023-04-19 13:11] VITALS: BP 116/75; PULSE 78; RESP 16; TEMP 36.1; O2SAT 100
[2023-04-19 13:26] VITALS: BP 111/74; PULSE 81; RESP 16; TEMP 36.3; O2SAT 100
--- NOTE | 2023-04-19 14:47 | HO.POSTANES ---
Post Anesthesia Evaluation Post Anesthesia Evaluation Date of Service: 04/19/23 Vital Signs: Vital Signs Temp Pulse Resp BP Pulse Ox O2 Del Method 04/19/23 13:26 97.4 F 81 16 111/74 100 Room Air 04/19/23 13:11 97 F 78 16 116/75 100 Room Air 04/19/23 10:21 98.2 F 78 16 127/83 96 Room Air Anesthesia: Monitored Mental Status: Awake Pain Control: Satisfactory Nausea/Vomiting: None Hydration: Adequate Anesthesia-Related Issues: No Anes. Related Issues
== END 2023-04-19 14:27 | disposition home or self-care (01) ==
PROVIDERS: PCP Internal Medicine; Visit Provider Internal Medicine
PROC: (CPT 43239; principal; 2023-04-19 12:00)
DX: K90.0 Celiac disease (principal); K22.9 Disease of esophagus, unspecified; Z12.11 Encounter for screening for malignant neoplasm of colon; K56.2 Volvulus; K64.8 Other hemorrhoids; Z86.010 Personal history of colon polyps; E78.5 Hyperlipidemia, unspecified; I10 Essential (primary) hypertension; R74.01 Elevation of levels of liver transaminase levels
CPT/HCPCS: 43239; 45378; 88305; 88313; 88342; J1596; J2704

== ENCOUNTER → 2023-04-19 07:50 | Outpatient (BNV) | payer BC, SELFPAY | PROVIDERS: PCP Internal Medicine; Visit Provider Internal Medicine | DX: Z12.11 Encounter for screening for malignant neoplasm of colon (principal); Z86.010 Personal history of colon polyps; K90.0 Celiac disease; K64.8 Other hemorrhoids; K20.90 Esophagitis, unspecified without bleeding | CPT/HCPCS: 43239; 45378 ==

== ENCOUNTER 2023-04-26 08:21 | Outpatient (REF) | payer BC, SELFPAY ==
--- NOTE | ~2023-04-26 | XR_ITS ---
EXAMINATION: XR CHEST CLINICAL INFORMATION: Nodule on MRI COMPARISON: None available. TECHNIQUE: 2 views of the chest were obtained. FINDINGS: 1.4 x 1.4 cm nodular-like focus is noted along the right costophrenic recess on the frontal projection which may reflect the right nipple shadow as seen on the lateral projection though its contralateral nipple shadow is not well identified. Pulmonary nodule not excluded. Correlate with radiopaque nipple marker and/or follow-up with cross-sectional imaging. No pneumothorax. Trachea is midline. Cardiomediastinal silhouette is not enlarged. No large pleural effusion. Osseous structures are intact. XR/XR chest 2V IMPRESSION: 1.4 x 1.4 cm nodular-like focus is noted along the right costophrenic recess on the frontal projection which may reflect the right nipple shadow as seen on the lateral projection though its contralateral nipple shadow is not well identified. Pulmonary nodule not excluded. Correlate with radiopaque nipple marker and/or follow-up with cross-sectional imaging.
== END 2023-04-26 08:22 | disposition home or self-care (01) ==
LOC: HO.HMGCX 08:21
PROVIDERS: PCP Internal Medicine; Visit Provider Internal Medicine Gastroenterology
DX: R93.89 Abnormal findings on diagnostic imaging of other specified body structures (principal)
CPT/HCPCS: 71046

== ENCOUNTER 2023-05-16 07:44 | Outpatient (REF) | payer BC, SELFPAY ==
[2023-05-16 11:25] LABS: Hematocrit 43.2 % (37.0-47.0); Hemoglobin 14.2 g/dl (12.0-16.0); Mean Corpuscular HGB Conc 32.9 g/dl (31.0-35.0); Mean Corpuscular Hemoglobin 30.7 pg (27.0-33.0); Mean Corpuscular Volume 93.3 fL (80.0-98.0); Mean Platelet Volume 10.8 fL (9.4-12.3); Platelet Count 239 X10*3/uL (160-400); Red Blood Count 4.63 X10*6/uL (4.20-5.50); Red Cell Distribution Width 12.1 % (11.0-16.0); White Blood Count 5.6 X10*3/uL (4.8-10.8)
[2023-05-16 11:46] LABS: Alanine Aminotransferase 20 U/L (0-31); Albumin Level 4.1 g/dL (3.5-5.0); Alkaline Phosphatase 113 U/L (39-117); Anion Gap 11 (12-20); Aspartate Amino Transferase 20 U/L (5-31); Bilirubin Total 0.3 mg/dL (0.0-1.0); Blood Urea Nitrogen 17 mg/dL (9-16); Calcium 9.7 mg/dL (8.4-10.2); Carbon Dioxide 30 mmol/L (22-29); Chloride 103 mmol/L (96-108); Estimated Glomerular Filt Rate > 60; Glucose Random 98 mg/dL (60-115); Potassium 4.2 mmol/L (3.3-5.1); Sodium 140 mmol/L (135-145); Total Protein 6.5 g/dL (6.5-8.0)
== END 2023-05-16 07:45 | disposition home or self-care (01) ==
LOC: HO.HMGCLDS 07:44
PROVIDERS: PCP Internal Medicine; Visit Provider Internal Medicine
DX: R91.1 Solitary pulmonary nodule (principal)
CPT/HCPCS: 36415; 80053; 85027

== ENCOUNTER 2023-06-06 11:28 | Outpatient (REF) | payer BC, SELFPAY ==
--- NOTE | ~2023-06-06 | CT_ITS ---
EXAMINATION: CT CHEST WITH CONTRAST CLINICAL INFORMATION: Solitary pulmonary nodule COMPARISON: Chest radiograph dated 04/26/2023 and MRI of the abdomen 03/06/2023. TECHNIQUE: Multidetector volumetric CT imaging of the chest was obtained after the administration of 50 mL of Omnipaque 350 intravenous contrast without immediate adverse reactions. Axial MIP volume rendering provided. Sagittal and coronal reformatted images were obtained. This CT examination was performed using dose optimization techniques as appropriate, variously including the following: *Automated exposure control *Adjustment of mA and/or kV according to patient size (this includes techniques or standardized protocols for targeted exams where dose is matched to indication/reason for exam; i.e. extremities or head) *Use of iterative reconstruction technique DLP: 86 mGy-cm FINDINGS: PODIATRIST ORTHOPEDIC: Calcified granuloma right lower lung. LUNGS: 10 mm calcified nodule right lower lobe adjacent to the diaphragm which accounts for the plain film findings. No further workup needed. Lungs otherwise hyperaerated but clear. MEDIASTINUM: Heart size normal. No pericardial effusion. Thoracic inlet unremarkable. No significant adenopathy. PLEURA: There is no pleural effusion. No pleural mass or thickening. AXILLA: No lymphadenopathy. UPPER ABDOMEN: Unremarkable OSSEOUS STRUCTURES: Degenerative change in the midthoracic spine. CT/CT chest w IV con IMPRESSION: Calcified nodule right lower lung. This likely reflects a calcified granuloma and no further workup therefore is needed. Fleischner guidelines were followed.
[2023-06-06] MEDS: iohexoL 350 MG/ML 100 ML INFUS..BTL 85 ML IV (11:53)
== END 2023-06-06 11:29 | disposition home or self-care (01) ==
LOC: HO.CT 11:28
PROVIDERS: PCP Internal Medicine; Visit Provider Internal Medicine
DX: R91.1 Solitary pulmonary nodule (principal)
CPT/HCPCS: 71260; Q9967

== ENCOUNTER → 2023-07-20 12:59 | Outpatient (BNVA) | payer BC, SELFPAY | PROVIDERS: PCP Internal Medicine; Visit Provider Internal Medicine ==

== ENCOUNTER 2023-08-06 10:49 | Outpatient (AMB) | payer BC, SELFPAY ==
--- NOTE | 2023-08-06 11:10 | MHC.OFFVIS ---
Vital Signs 08/06/23 11:12 Height 5 ft 3.5 in Weight 114 lb 10.246 oz BMI 20.0 BP 139/90 H Blood Pressure Location Lt brachial Position Sitting Pulse 108 H Intake Visit Reasons: follow up CT scan Intake Note: Tammy presents in the office as a follow up CT scan CC: She is just here for results to her ct scan - no concerns. Allergies cephalexin [From Keflex] Allergy (Mild, Verified 08/06/23 11:12) Hives HPI Comments Details: 52 y.o F with PMH of celiac disease who is here to establish care for celiac disease. 01/03/2023: Reports getting diagnosed with celiac in 2009 for abdominal pain, bloating and diarrhea at [facility]. Reports anemia in 2019 which was attributed to abnormal uterine bleeding which has now resolved since getting IUD. Has been adhering to GFD. No fam hx of celiac but grandmother had RA. Pt also reports pain in small joints of hands. Currently main sx are intermittent diarrhea without any abdominal pain or cramping. Every 1-2 weeks she will have a bout of having 5-6 loose BMs in the morning spaced out by 5-10 minutes and then it would resolve. Of note, sx started shortly after getting her hormonal IUD. However, reports she just got it out 2 days ago. Of note, on review of labs also noted to have elevated LFTs. Does not report drinking heavily. 1-2 glasses of wine on weekends. In terms of CRC screening, last colonoscopy was 5 years ago. Patient reports having 2 polyps removed and being given a 5 year interval. 04/19/2023: Irregular Z line r/o BE (biopsy) Normal stomach (biopsy) Normal duodenum (biopsy) Fair prep Normal colon mucosa Hemorrhoids Path: A. Duodenum, biopsy: Chronic inactive duodenitis. B. Stomach, random, biopsy: Antral-type and oxyntic mucosa with mild chronic inactive inflammation; no Helicobacter organisms seen. C. 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 - No dysplasia seen. - Active esophagitis (maximum eosinophil count 3 per high powered field).Squamous mucosa within normal limits. 08/06/23: Here for follow up. Results of EGD/colo reviewed. Celiac in remission. No polyps on most recent colo, but due to prep, repeat recommended in 5 years. Thinks diarrhea was most likely due to overuse of xylitol based mouth wash. In terms of LFTs, those have since normalised. The lung nodule is a calcified granuloma that doesnt need any surveillance imaging. [facility] Medical History Hypercalcemia Hyperlipidemia LDL goal <130 Elevated transaminase level Essential hypertension Family history of colon cancer ADD (attention deficit disorder) Celiac disease Dysfunctional uterine bleeding Surgical History Hx of colonoscopy S/P D&C (status post dilation and curettage) S/P dental alevism Family History Mother Breast CA HTN (hypertension) Glaucoma Uterine cancer Father Skin cancer Frontal lobe dementia Brother Substance abuse Paternal Grandmother Mental health problem Maternal Grandfather Colon cancer Maternal Grandmother Breast CA Paternal Grandfather Myocardial infarction Coronary artery disease Social History Housing: House Alcohol intake: current Alcohol intake frequency: holidays/special occasions only Alcohol type: wine Patient Tobacco Use Status: Never used Tobacco e-Cigarette/Vaping Use: Never Used Second Hand Smoke Exposure: No service: No Current occupational status: unemployed 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, 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 Current occupational exposures/hazards: No Cognitive needs: No Hearing needs: No Vision needs: Yes Review of Systems Const All systems reviewed & are unremarkable except as noted in HPI and below Physical Exam Vital Signs: Last Vital Signs Pulse 108 H 08/06/23 11:12 BP 139/90 H 08/06/23 11:12 BMI result Body Mass Index 20.0 NAD Nonicteric No abd distention , nontender A/Ox3, normal gait Assessment & Plan Assessment & Plan (1) Celiac disease: Code(s): K90.0 - Celiac disease Category: Medical (2) Elevated transaminase level: Code(s): R74.01 - Elevation of levels of liver transaminase levels Category: Medical (3) Personal history of colonic polyps: Code(s): Z86.010 - Personal history of colonic polyps Category: Medical Plan 1. Celiac disease: Fairly well controlled with dietary discretion. Duodenal bx without any active celiac. Plan: -Repeat cbc, celiac serology and nutrition labs due in 6 months 2. Elevated LFTs: Resolved. 3. Personal history of polyps No polpys on most recent colo, but due to prep quality repeat recommended in 5 years i.e 2028. Follow up 6 months Orders: Orders Complete Blood Count no Diff 6 Months K90.0 - Celiac disease Vitamin D 25-OH Total 6 Months K90.0 - Celiac disease IRON PROFILE 6 Months K90.0 - Celiac disease Ferritin 6 Months K90.0 - Celiac disease Comprehensive Met. Panel 6 Months K90.0 - Celiac disease Vitamin B12 and Folate 6 Months K90.0 - Celiac disease Immunoglobulin A 6 Months K90.0 - Celiac disease Transglutaminase IgA 6 Months K90.0 - Celiac disease Coding Level of Care Code Est Pt Level 4 (11125) Diagnoses Celiac disease K90.0 Elevated transaminase level R74.01 Personal history of colonic polyps Z86.010
[2023-08-06 11:12] VITALS: BP 139/90; PULSE 108
== END 2023-08-06 11:38 | disposition home or self-care (01) ==
PROVIDERS: PCP Internal Medicine; Visit Provider Internal Medicine
DX: K90.0 Celiac disease (principal); R74.01 Elevation of levels of liver transaminase levels; Z86.010 Personal history of colon polyps
CPT/HCPCS: 99214

== ENCOUNTER → 2023-08-06 10:49 | Outpatient (BNVA) | payer BC, SELFPAY | PROVIDERS: PCP Internal Medicine; Visit Provider Internal Medicine ==

== ENCOUNTER 2023-10-11 08:05 | Outpatient (AMB) | payer BC, SELFPAY ==
--- NOTE | 2023-10-11 08:51 | MHC.OFFWIV ---
Intake Vital Signs 10/11/23 08:52 Height 5 ft 3.5 in Weight 121 lb BMI 21.1 BP 118/80 Blood Pressure Location Lt brachial Position Sitting Pulse 85 Pulse Source Pulse Oximeter Temp 98.3 F Temp Source Oral Pulse Oximetry (%) 98 Oxygen Delivery Method Room Air Intake Visit Reasons: Pos Kerry Intake Note: pt here c/o poison kerry Patient Tobacco Use Status: Never used Tobacco Allergies cephalexin [From Keflex] Allergy (Mild, Verified 10/11/23 08:51) Hives Do you need a note to return to daycare/school/sports/work: No HPI HPI Comments History of Present Illness Details Patient is a 52-year-old female complaining of an itchy rash all over her body for several days. She has tried aveeno oatmeal baths, benadryl but it doesn't help completely and the rash is spreading. 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 [facility] Medical History Hypercalcemia Hyperlipidemia LDL goal <130 Elevated transaminase level Essential hypertension Family history of colon cancer ADD (attention deficit disorder) Celiac disease Dysfunctional uterine bleeding Surgical History Hx of colonoscopy S/P D&C (status post dilation and curettage) S/P dental adventism Family History Mother Breast CA HTN (hypertension) Glaucoma Uterine cancer Father Skin cancer Frontal lobe dementia Brother Substance abuse Paternal Grandmother Mental health problem Maternal Grandfather Colon cancer Maternal Grandmother Breast CA Paternal Grandfather Myocardial infarction Coronary artery disease Social History Housing: House Alcohol intake: current Alcohol intake frequency: holidays/special occasions only Alcohol type: wine Patient Tobacco Use Status: Never used Tobacco e-Cigarette/Vaping Use: Never Used Second Hand Smoke Exposure: No service: No Current occupational status: unemployed 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, 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 Current occupational exposures/hazards: No Cognitive needs: No Hearing needs: No Vision needs: Yes Review of Systems Const All systems reviewed & are unremarkable except as noted in HPI and below Physical Exam Vital Signs: Last Vital Signs Temp 98.3 F 10/11/23 08:52 Pulse 85 10/11/23 08:52 BP 118/80 10/11/23 08:52 Pulse Ox 98 10/11/23 08:52 Oxygen Delivery Method Room Air 10/11/23 08:52 BMI result Body Mass Index 21.1 Const General: cooperative, healthy appearing, comfortable and no acute distress Orientation/consciousness: patient oriented x3 Limitations: no limitations HEENT Head: Yes normal to inspection Eyes General: appearance normal, both eyes and all related structures Resp Effort & Inspection: normal respiratory effort and able to speak in complete sentences Skin Other: areas of a streaky, linear maculopapular rash with crusted lesions on bilateral ear lobes, right upper eye brow area, anterior neck, left upper arm, in between her breasts and underneath her breasts as well as bilateral legs Neuro General: patient oriented x3 Assessment & Plan Assessment & Plan (1) Allergic dermatitis due to poison kerry: Code(s): L23.7 - Allergic contact dermatitis due to plants, except food Plan: Reviewed risks and benefits of prednisone. Also recommended if the lesions get closer to her eye and the inside of her ears that she should go see an salt maker and or an ear nose throat doctor. Send prescription for 15 day prednisone taper to her pharmacy Plan See above Medications: New prednisone On days 1 through 5 take 2 tablets with breakfast; On days 6 through 10 take 1 tablet with breakfast; On days 11 through 15 take 1/2 tablet with breakfast 20 mg PO DAILY 18 tabs 0RF Coding Level of Care Code Est Pt Level 3 (62522) Diagnoses Allergic dermatitis due to poison kerry L23.7
[2023-10-11 08:52] VITALS: BP 118/80; PULSE 85; TEMP 36.8; O2SAT 98; BMI 21.1
== END 2023-10-11 09:14 | disposition home or self-care (01) ==
PROVIDERS: PCP Internal Medicine; Visit Provider Physician Assistant
DX: L23.7 Allergic contact dermatitis due to plants, except food (principal)
CPT/HCPCS: 99213

== ENCOUNTER 2023-11-02 11:06 | Outpatient (AMB) | payer BC, SELFPAY ==
--- NOTE | 2023-11-02 11:06 | MHC.OFFWIV ---
Intake Vital Signs 11/02/23 11:08 Height 5 ft 3.5 in Weight 121 lb BMI 21.1 BP 128/82 Blood Pressure Location Rt brachial Position Sitting Pulse 118 H Pulse Source Pulse Oximeter Temp 98.4 F Temp Source Oral Pulse Oximetry (%) 98 Oxygen Delivery Method Room Air Intake Visit Reasons: EP- RT hip pain Intake Note: pt c/o RT hip pain. Started 10 days ago. Patient Tobacco Use Status: Never used Tobacco Allergies cephalexin [From Keflex] Allergy (Mild, Verified 11/02/23 11:08) Hives Do you need a note to return to daycare/school/sports/work: No HPI EP- RT hip pain HPI Details This is a 52 year old female patient who presents to the [place] clinic today with right hip and buttock pain. She reports that 10 days ago, she was vacationing and while getting off of a boat, she had one right leg on the dock and left leg in the boat, while trying to pull the boat closer to the dock. She felt pain at this time and has felt that hip has been misaligned since then. She is able to walk and stand with minimal pain. Sitting is most painful for her. She has been icing and resting area, and doing some gentle stretches daily for this. She denies any leg weakness or popping/clicking sensations. [facility] Medical History Hypercalcemia Hyperlipidemia LDL goal <130 Elevated transaminase level Essential hypertension Family history of colon cancer ADD (attention deficit disorder) Celiac disease Dysfunctional uterine bleeding Surgical History Hx of colonoscopy S/P D&C (status post dilation and curettage) S/P dental scientology Family History Mother Breast CA HTN (hypertension) Glaucoma Uterine cancer Father Skin cancer Frontal lobe dementia Brother Substance abuse Paternal Grandmother Mental health problem Maternal Grandfather Colon cancer Maternal Grandmother Breast CA Paternal Grandfather Myocardial infarction Coronary artery disease Social History Housing: House Alcohol intake: current Alcohol intake frequency: holidays/special occasions only Alcohol type: wine Patient Tobacco Use Status: Never used Tobacco e-Cigarette/Vaping Use: Never Used Second Hand Smoke Exposure: No service: No Current occupational status: unemployed 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, 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 Current occupational exposures/hazards: No Cognitive needs: No Hearing needs: No Vision needs: Yes Review of Systems Const All systems reviewed & are unremarkable except as noted in HPI and below Physical Exam Vital Signs: Last Vital Signs Temp 98.4 F 11/02/23 11:08 Pulse 118 H 11/02/23 11:08 BP 128/82 11/02/23 11:08 Pulse Ox 98 11/02/23 11:08 Oxygen Delivery Method Room Air 11/02/23 11:08 BMI result Body Mass Index 21.1 Const General: cooperative, healthy appearing, comfortable and no acute distress Nutritional Appearance: average body habitus and well nourished Limitations: no limitations Resp Effort & Inspection: normal respiratory effort Back/Spine/Pelvis Thoracic/Lumbar Spine: thoracic and lumbar spine normal to inspection, thoraco-lumbar ROM normal and straight leg raise negative bilaterally Sacroiliac joints: on the right tender to palpation (mild) Skin General skin exam: no rashes or lesions noted Extrem General: Yes capillary refill normal and Yes no clubbing, cyanosis or edema Right lower extremity: full ROM, no joint enlargement and hip/thigh Details: normal to inspection and abnormal ROM Details: pain with passive ROM during Details: to internal rotation and to external rotation Psych Appearance: grossly normal Mental Status: mental status grossly normal Speech and movement: Normal speech and movement present Assessment & Plan Assessment & Plan (1) Acute right hip pain: Code(s): M25.551 - Pain in right hip Plan: XR of right hip appears normal. No acute fracture or dislocation. This was reviewed with the patient. Reviewed with patient that this is likely a self-limiting injury; possible labral strain, and conservative measures are advised at this time. We discussed use of NSAIDs, ice, and gentle stretching. I also recommended some SI joint stretches she can do as this area is somewhat bothersome on exam. She sees Dr. Davalos for PCP and will f/u with her if pain worsens or conservative treatment/time does not resolve symptoms, as this may indicated need for additional imaging. All questions were answered and patient agrees to plan at this time. Orders: Orders XR hip RT min 2V Today M25.551 - Pain in right hip Coding Level of Care Code Est Pt Level 4 (85527) Diagnoses Acute right hip pain M25.551
[2023-11-02 11:08] VITALS: BP 128/82; PULSE 118; TEMP 36.9; O2SAT 98; BMI 21.1
== END 2023-11-02 12:32 | disposition home or self-care (01) ==
PROVIDERS: PCP Internal Medicine; Visit Provider Nurse Practitioner Family
DX: M25.551 Pain in right hip (principal)
CPT/HCPCS: 99214

== ENCOUNTER 2023-11-02 11:43 | Outpatient (REF) | payer BC, SELFPAY ==
--- NOTE | ~2023-11-02 | XR_ITS ---
EXAMINATION: XR HIP, RIGHT CLINICAL INFORMATION: Right hip pain. COMPARISON: None available. TECHNIQUE: Two views of the right hip. FINDINGS: No acute fracture or dislocation. No significant joint space narrowing. Tiny lateral acetabular marginal osteophytes. No osseous erosion. Phleboliths within the pelvis. XR/XR hip RT min 2V IMPRESSION: Minimal right hip arthrosis.
== END 2023-11-02 11:44 | disposition home or self-care (01) ==
LOC: HO.HMGCX 11:43
PROVIDERS: PCP Internal Medicine; Visit Provider Nurse Practitioner Family
DX: M25.551 Pain in right hip (principal)
CPT/HCPCS: 73502

== ENCOUNTER 2023-12-29 19:50 | Emergency (ER) | payer BC, SELFPAY ==
--- NOTE | ~2023-12-29 | CT_ITS ---
EXAMINATION: CT CERVICAL SPINE WITHOUT CONTRAST CLINICAL INFORMATION: Trauma COMPARISON: None available. TECHNIQUE: Axial 3 mm thin and reformatted 2 mm thin sagittal and coronal images of cervical spine were obtained. This CT examination was performed using dose optimization techniques as appropriate, variously including the following: *Automated exposure control *Adjustment of mA and/or kV according to patient size (this includes techniques or standardized protocols for targeted exams where dose is matched to indication/reason for exam; i.e. extremities or head) *Use of iterative reconstruction technique DLP: 267 mGy-cm FINDINGS: There is mild straightening of cervical lordosis. The vertebral heights, alignment and disc heights are normal. The craniovertebral junction and the C1-C2 alignment is normal. There is no visible acute fracture, dislocation or subluxation seen. The prevertebral and paravertebral soft tissues are normal. The airway is widely patent. The lung apices are clear. Bilateral thyroid lobes, submandibular and parotid glands are symmetrical and unremarkable. No no mass or abnormal lymphadenopathy seen. CT/CT cervical spine wo IV con IMPRESSION: Unremarkable examination. Fleischner guidelines were followed. Electronically signed by: Balaji Stern MD 12/29/2023 09:23 PM EDT
--- NOTE | ~2023-12-29 | CT_ITS ---
EXAMINATION: CT HEAD WITHOUT CONTRAST EXAMINATION: NONCONTRAST HEAD CT INDICATION INFORMATION: Head strike on slight table, lateral to left mormonism COMPARISON: None TECHNIQUE: Noncontrast CT examinations of the head was performed. Coronal and sagittal images were created for each examination at the technologist workstation. This CT examination was performed using dose optimization techniques as appropriate, variously including the following: *Automated exposure control *Adjustment of mA and/or kV according to patient size (this includes techniques or standardized protocols for targeted exams where dose is matched to indication/reason for exam; i.e. extremities or head) *Use of iterative reconstruction technique DLP: 554 mGy-cm FINDINGS: Head: There is no evidence of acute intracranial hemorrhage or territorial infarction. There is a small left frontotemporal subdural hematoma measuring up to 4 mm in maximal thickness. No abnormal mass effect or midline shift is seen. Wade to white matter differentiation is well preserved. No hydrocephalus. No significant volume loss. There is no abnormal attenuation within the brain parenchyma. No acute osseous abnormality. Soft tissue laceration over the left temporal region. The mastoid air cells and visualized portions of the paranasal sinuses are well aerated. CT/CT head/brain wo IV con IMPRESSION: 1. There is a small left frontotemporal subdural hematoma measuring up to 4 mm in maximal thickness. No abnormal mass effect or midline shift. 2. Soft tissue laceration over the left temporal region. This critical result was discussed with Zaid Keenan at 8:18 PM on 12/29/2023 and it was ascertained that the content and urgency of the report was understood at the time of direct communication. Electronically signed by: Marcelino López MD 12/29/2023 08:20 PM EDT
--- NOTE | 2023-12-29 19:54 | ED_ITS ---
HPI - General Adult General Chief complaint: Head Injury Stated complaint: fell head laceration Time Seen by Provider: 12/29/23 20:19 Source: patient, family, RN notes reviewed and old records reviewed Mode of arrival: EMS Limitations: no limitations History of Present Illness ED Provider: Le HPI narrative: 53-year-old female with past medical history significant for hypertension pres ents for evaluation of a head injury. Patient reports that she got a new shower installed as well as a slight table The patient states that she slipped on water and struck the left side of her forehead against the table She did not lose consciousness. She complains of a 5/10 headache She denies any dizziness, lightheadedness, visual changes, nausea, vomiting She has no other complaints or concerns at this time I received a call from [facility] the patient has a small subdural hematoma and immediately went to evaluate the patient Related Data Home Medications ?Medication ?Instructions ?Recorded ?Confirmed loratadine 10 mg tablet 10 mg PO DAILY 10/31/22 01/06/23 dextroamphetamine-amphetamine 15 1 tab PO TID 08/06/23 mg tablet omeprazole 20 mg capsule,delayed 20 mg PO DAILY PRN 10/11/23 release Previous Rx's ?Medication ?Instructions ?Recorded lisinopril 10 mg tablet 10 mg PO DAILY #90 tabs 07/01/23 prednisone 20 mg tablet 20 mg PO DAILY #18 tabs 10/11/23 Allergies Allergy/AdvReac Type Severity Reaction Status Date / Time cephalexin [From Keflex] Allergy Mild Hives Verified 12/29/23 19:58 gluten Allergy Gastrointestinal Verified 12/29/23 19:58 Upset Review of Systems Constitutional: Constitutional: Denies body ache(s), Denies chills, Denies fever(s), Denies frequent falls and Reports headache(s) Eyes: Eyes: Denies blurry vision ENT: Denies vertigo, Denies dizziness, Reports headache(s), Denies disequilibrium and Denies sore throat Cardiovascular: Cardiovascular: Denies chest pain and Denies dyspnea Respiratory: Respiratory: Denies cough and Denies dyspnea Gastrointestinal: Gastrointestinal: Denies abdominal pain, Denies nausea and Denies vomiting Musculoskeletal: Musculoskeletal: Denies abnormal gait and Denies back pain Neurologic: Denies Neuro-related abnormal movements, Denies abnormal gait, Denies confusion, Denies vertigo, Denies dizziness, Denies frequent falls, Reports headache(s), Denies focal weakness, Denies convulsions, Denies seizure- like activity and Denies disequilibrium Psychiatric: Psychiatric: Denies anxiety and Denies confusion PMFSH Past Medical History Medical History Hypercalcemia Hyperlipidemia LDL goal <130 Elevated transaminase level Essential hypertension Family history of colon cancer ADD (attention deficit disorder) Celiac disease Dysfunctional uterine bleeding Surgical History Hx of colonoscopy S/P D&C (status post dilation and curettage) S/P dental holiness Family History Family History Mother Breast CA HTN (hypertension) Glaucoma Uterine cancer Father Skin cancer Frontal lobe dementia Brother Substance abuse Paternal Grandmother Mental health problem Maternal Grandfather Colon cancer Maternal Grandmother Breast CA Paternal Grandfather Myocardial infarction Coronary artery disease Social History Social History Housing: House Alcohol intake: current Alcohol intake frequency: holidays/special occasions only Alcohol type: wine Patient Tobacco Use Status: Never used Tobacco Smoked in Last 30 Days: No e-Cigarette/Vaping Use: Never Used Second Hand Smoke Exposure: No Use of substances other than those prescribed or required for medical reasons: No Advance Directives: No Advance Directives Information Provided: No service: No Current occupational status: unemployed 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, 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 Current occupational exposures/hazards: No Cognitive needs: No Hearing needs: No Vision needs: Yes Physical Exam ED Vital Signs: Vital Signs - 24 hr 12/29/23 19:56 Temperature 97.5 F Pulse Rate 104 H Respiratory Rate 16 Blood Pressure 149/104 H Pulse Oximetry 98 Oxygen Delivery Method Room Air BMI result Body Mass Index 21.3 Const General: No confusion Nutritional Appearance: well nourished Orientation/consciousness: No confusion HENMT Head: No normocephalic, No atraumatic and Yes laceration Eyes Eyelids: Yes eyelids normal Conjunctivae: conjunctivae normal Sclerae: sclerae normal Corneas: corneas normal Pupils: Equal, round and reactive pupils present EOM: EOMs intact bilaterally Neck Neck: Yes full ROM Resp Effort & Inspection: normal respiratory effort, able to speak in complete sentences and not labored Cardio Rate: regular rate Rhythm: regular rhythm GI Inspection: No distended Palpation (GI): Soft to palpation, not firm, nontender, no guarding and not rigid Back/Spine/Pelvis Other: There is no C-spine tenderness Skin General skin exam: elasticity normal Neuro General: No confusion Cranial nerves: Yes CN's II-XII intact bilaterally, Yes Equal, round and react prema pupils present and Yes Bilaterally intact EOM present Cognition (Neuro): normal cognition Extrem Other: Moving all extremities well without any obvious deformities Course Course Course Narrative: This is a Rapid Medical Examination (RME) performed by Cliff Riley PA-C in triage. Full HPI, ROS, assessment and treatment plan per primary provider in the Main ED. 53 yo female here w/ lac to left adventist sustained after slipping in the shower and striking her left head on a slate table. no loc. no thinners. + deep laceration noted to left adventist. no palpable skull fx. exam nonfocal. perrla. Plan: ct head Reevaluation(s) Reevaluation #1: My attending, Dr Pollack discussed with the [facility] transfer line as I was in a procedure when the phone cocaine through. He discussed with the transfer line and the patient will be a direct admit given the size of 4 mm. The patient will be transferred to the care of Dr. Peña. Time: 21:10 Medications Administered Discontinued Medications Generic Name Dose Route Start Last Admin Trade Name Katerin PRN Reason Stop Dose Admin Acetaminophen 650 mg 12/29/23 20:35 12/29/23 20:56 Acetaminophen 325 Mg Tablet PO 12/29/23 20:36 650 mg ONCE ONE Administration Diphtheria/Tetanus/Acell Pertussis 0.5 ml 12/29/23 21:17 12/29/23 21:51 Diphth,Pertus(Acell),Tet Adult 0.5 Ml Syringe IM 12/29/23 21:18 0.5 ml .ONCE ONE Administration Lidocaine/Epinephrine 10 ml 12/29/23 21:16 12/29/23 21:51 Lidocaine Hcl 1%/Epi 1:100,000 10 Ml Vial INFILTRATI 12/29/23 21:17 10 ml ONCE ONE Administration Procedures Laceration Laceration 1: Site: scalp Side (If applicable): left Size (cm): 2 Description: linear Depth: simple, single layer Local Anesthetic: lidocaine 1% and with epi Amount of anesthesia used (mL): 4 Pre-repair: wound explored, irrigated extensively and deep structures intact Skin layer closed with: other (Prolene) Size (cm): 6-0 Number of sutures: 4 Technique: simple, interrupted Medical Decision Making Medical Decision Making MDM Narrative: 53-year-old female presents for evaluation of a head injury. She slipped in the shower and has a small left frontal lobe subdural hematoma. The patient has a GCS of 15, no focal neuro deficits on exam. Will discuss with [facility] for a trauma transfer. I asked the Radiology Department to upload her images to the file sharing system. Laceration repaired by PA studentalfreda under my direct supervision Differential Diagnosis Differential Diagnoses: The differential diagnosis associated with the presentation includes Mechanical fall Subdural hematoma Subarachnoid hemorrhage Laceration Independent Interpretation I performed an independent interpretation of an: CT Scan Interpretation: Agree with Radiology interpretation, small left frontal lobe hematoma, no obvious shift Radiology Impression Discussion of test interpretation with radiology: I have reviewed the radiologist's reading. Radiologist Impression: CT/CT head/brain wo IV con IMPRESSION: 1. There is a small left frontotemporal subdural hematoma measuring up to 4 mm in maximal thickness. No abnormal mass effect or midline shift. 2. Soft tissue laceration over the left temporal region. This critical result was discussed with Zaid Keenan at 8:18 PM on 12/29/2023 and it was ascertained that the content and urgency of the report was understood at the time of direct communication. Electronically signed by: Marcelino López MD 12/29/2023 08:20 PM EDT RP Discharge Plan Discharge Clinical Impression: Acute subdural hematoma, Facial laceration Patient Disposition: Xfer Acute Care Hospital Transfer Details: [facility] Prescriptions: No Action lisinopril 10 mg tablet 10 mg PO DAILY Qty: 90 1RF loratadine 10 mg tablet 10 mg PO DAILY omeprazole 20 mg capsule,delayed release(DR/EC) 20 mg PO DAILY PRN prednisone 20 mg tablet 20 mg PO DAILY Qty: 18 0RF Rx Instructions: On days 1 through 5 take 2 tablets with breakfast; On days 6 through 10 take 1 tablet with breakfast; On days 11 through 15 take 1/2 tablet with breakfast dextroamphetamine-amphetamine 15 mg tablet 1 tab PO TID Print Language: Tajik
[2023-12-29 19:56] VITALS: BP 149/104; PULSE 104; RESP 16; TEMP 36.4; O2SAT 98; BMI 21.3
--- NOTE | 2023-12-29 20:48 | PC.NURSE ---
this rn assumed a&ox4, respirations even and unlabored. pt reporting slipping and falling in shower this afternoon.reports excessive amount of bleeding which brought her into the ED today. pt reporting 5/10 headache at this time. laceration to forehead wrapped with gauze. Neuros intact. normal sinus on tele, 100 bpm. Zaid JIMENEZ at bedside.
[2023-12-29] MEDS: Acetaminophen 325 MG TABLET 650 MG PO (20:56)
--- NOTE | 2023-12-29 20:59 | PC.NURSE ---
pt medicated per mar, tolerated well with water.
--- NOTE | 2023-12-29 21:25 | PC.NURSE ---
20G placed in left ac, rabia pa at bedside suturing pt laceration.
--- NOTE | 2023-12-29 21:29 | PC.NURSE ---
report given to Heather at [facility]. pt to [facility].
[2023-12-29] MEDS: Diphth,Pertus(ACell),Tet Adult 0.5 ML SYRINGE IM (21:51)
[2023-12-29] MEDS: Lidocaine HCl 1%/Epi 1:100,000 10 ML VIAL INFILTRATI (21:51)
[2023-12-29 22:24] VITALS: BP 118/85; PULSE 97; RESP 18; TEMP 36.7; O2SAT 99
[2023-12-29 23:01] VITALS: BP 118/85; PULSE 97; RESP 18; TEMP 36.7; O2SAT 99
== END 2023-12-29 23:03 | disposition short-term general hospital (02) ==
PROVIDERS: Emergency Provider Emergency Medicine; PCP Internal Medicine
DX: S06.5X0A Traumatic subdural hemorrhage without loss of consciousness, initial encounter (principal); S01.01XA Laceration without foreign body of scalp, initial encounter; W18.2XXA Fall in (into) shower or empty bathtub, initial encounter; Y93.E1 Activity, personal bathing and showering; Y92.012 Bathroom of single-family (private) house as the place of occurrence of the external cause; Y99.9 Unspecified external cause status; Z23 Encounter for immunization
CPT/HCPCS: 12011; 70450; 72125; 90471; 90715; 99285; J2004

== ENCOUNTER 2023-12-31 08:45 | Emergency (ER) | payer BC, SELFPAY ==
--- NOTE | ~2023-12-31 | CT_ITS ---
EXAMINATION: CT HEAD WITHOUT CONTRAST CLINICAL INFORMATION: History of traumatic subdural hematoma. Patient thinks symptoms are worse. COMPARISON: CT head dated December 29, 2023. TECHNIQUE: Contiguous axial imaging was performed from the skull base to vertex without intravenous administration of contrast. This CT examination was performed using dose optimization techniques as appropriate, variously including the following: *Automated exposure control *Adjustment of mA and/or kV according to patient size (this includes techniques or standardized protocols for targeted exams where dose is matched to indication/reason for exam; i.e. extremities or head) *Use of iterative reconstruction technique DLP: 607 mGy-cm FINDINGS: The thin, hyperdense left frontoparietal subdural hematoma is redemonstrated and appears unchanged when compared with the December 29, 2023 CT examination. The collection measures up to 4 mm in maximal thickness. There is minimal mass effect on the adjacent brain parenchyma. There is no significant midline shift. No new intracranial hemorrhage. There is no evidence of acute/subacute cerebral or cerebellar infarction. The ventricles are normal in size. The orbits are symmetric and within normal limits. The calvarium is intact. There is mild soft tissue swelling over the left temporal region. The visualized paranasal sinuses and mastoid air cells are clear. CT/CT head/brain wo IV con IMPRESSION: The thin, hyperdense left frontoparietal subdural hematoma is redemonstrated and appears unchanged when compared with the December 29, [address]23 CT examination. The collection measures up to 4 mm in maximal thickness. There is minimal mass effect on the adjacent brain parenchyma. There is no significant midline shift. No new intracranial hemorrhage. Electronically signed by: Bronson Christian DO 12/31/2023 01:01 PM EDT
--- NOTE | ~2023-12-31 | XR_ITS ---
EXAMINATION: XR FEMUR, LEFT CLINICAL INFORMATION: Fall and hematoma COMPARISON: None available. TECHNIQUE: AP and lateral views of the left femur were obtained. FINDINGS: The bones and soft tissues are normal. No fracture. No osseous lesions. XR/XR femur LT 2V IMPRESSION: Normal left femur. Electronically signed by: Reji Gonzales DO 12/31/2023 01:20 PM EDT RP
[2023-12-31 08:46] VITALS: BP 143/100; PULSE 105; RESP 20; TEMP 37.2; O2SAT 100; BMI 21.5
--- NOTE | 2023-12-31 09:07 | ED_ITS ---
HPI - General Adult General Chief complaint: Neuro Symptoms/Deficit Stated complaint: Subdural hematoma, worsening pain Time Seen by Provider: 12/31/23 08:56 Source: patient Mode of arrival: ambulatory Limitations: no limitations History of Present Illness ED Provider: DR. Storm HPI narrative: 53-year-old female s/p traumatic subdural hematoma after slipped and fell on the wet floor in the bathroom 2 days ago patient initially was seen and [facility] then was transferred to [facility] where she was observed for 24 hours was discharged last night from [facility] woke up this morning feeling tightness sensation on her left side of her head, had a small laceration on the left forehead with 4 sutures of 6-0 Prolene. patient declined any severe headache, no blurry vision, no weakness, no numbness just feel more swelling on her left side of her face, patient also sustained a left thigh pain with difficulty walking and hematoma to the left thigh patient stated that was never x-rayed after the fall and she want to make sure there is no fracture. Related Data Home Medications ?Medication ?Instructions ?Recorded ?Confirmed loratadine 10 mg tablet 10 mg PO DAILY 10/31/22 01/06/23 dextroamphetamine-amphetamine 15 1 tab PO TID 08/06/23 mg tablet omeprazole 20 mg capsule,delayed 20 mg PO DAILY PRN 10/11/23 release Previous Rx's ?Medication ?Instructions ?Recorded lisinopril 10 mg tablet 10 mg PO DAILY #90 tabs 07/01/23 prednisone 20 mg tablet 20 mg PO DAILY #18 tabs 10/11/23 Allergies Allergy/AdvReac Type Severity Reaction Status Date / Time cephalexin [From Keflex] Allergy Mild Hives Verified 12/31/23 08:49 gluten Allergy Gastrointestinal Verified 12/31/23 08:49 Upset Review of Systems Review of Systems: All other systems are reviewed and are negative Constitutional: Reports as per HPI and Reports no additional constitutional complaints Eyes: Reports as per HPI and Reports no additional eye complaints Reports system reviewed and no additional complaints, except as documented Cardiovascular: Reports as per HPI and Reports no additional cardiovascular complaints Respiratory: Reports as per HPI and Reports no additional respiratory complaints Gastrointestinal: Reports as per HPI and Reports no additional gastrointestinal complaints Genitourinary: Reports no additional female genitourinary complaints Musculoskeletal: Reports no additional musculoskeletal complaints Skin/Breast: Reports system reviewed and no additional complaints, except as docu Psychiatric: Reports no additional psychiatric complaints Endocrine: Reports no additional endocrine complaints Hematologic/Lymphatic: Reports no additional hematologic/lymphatic complaints Allergic/Immunologic: Reports no additional allergic/immunologic complaints Reports system reviewed and no additional complaints, except as documented and Reports Abnormal speech present [facility] Past Medical History Medical History Hypercalcemia Hyperlipidemia LDL goal <130 Elevated transaminase level Essential hypertension Family history of colon cancer ADD (attention deficit disorder) Celiac disease Dysfunctional uterine bleeding Surgical History Hx of colonoscopy S/P D&C (status post dilation and curettage) S/P dental jainism Family History Family History Mother Breast CA HTN (hypertension) Glaucoma Uterine cancer Father Skin cancer Frontal lobe dementia Brother Substance abuse Paternal Grandmother Mental health problem Maternal Grandfather Colon cancer Maternal Grandmother Breast CA Paternal Grandfather Myocardial infarction Coronary artery disease Social History Social History Housing: House Alcohol intake: current Alcohol intake frequency: a few times a week Alcohol type: wine Patient Tobacco Use Status: Never used Tobacco Smoked in Last 30 Days: No e-Cigarette/Vaping Use: Never Used Second Hand Smoke Exposure: No Use of substances other than those prescribed or required for medical reasons: No Advance Directives: No Advance Directives Information Provided: Yes Do you have a plan to hurt others: No Plan service: No Current occupational status: unemployed 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 Blood pressure elevated. Heart rate normal. Respiratory rate normal. Temperature normal. Oxygen saturation normal. Appearance: Alert. Oriented X3. No acute distress. Head: Normal external exam. Small laceration on the left forehead, suture is in place, dry, clean and intact. Atraumatic. No Johnson signs noted. No raccoon eyes noted Eyes: PERRLA. EOMI. Conjunctiva and sclera normal. Eyelids normal. ENT: TM's Normal. Pharynx normal. Uvula midline. Moist mucous membranes. No trismus noted. No drooling noted. No muffled voice noted. Neck: Normal inspection. Neck supple. FROM. No adenopathy. Thyroid Normal. No meningeal signs. No neck mass noted. CVS: Normal heart rate and rhythm. Heart sound normal. No murmurs noted. Pulses normal throughout. Respiratory: No respiratory distress. Painless inspiration. Breath sounds normal. No wheezes/rales/rhonchi noted. Chest nontender. No accessory muscle usage noted or decreased air movement noted. Abdomen: Soft and nontender. Bowel sounds normal in all 4 quadrants. No distention noted. No organomegaly noted. No visible injury noted. Back: No CVA tenderness. Full range of motion noted. Skin: Skin warm and dry. Normal skin color. Normal skin turgor. No rashes/lesions/lacerations noted. Extremities: No lower extremity edema. Extremities exhibit normal range of motion. Extremities nontender. Neuro: Oriented X 3. Cranial nerve exam: II-XII are grossly intact No motor deficit. No sensory deficit. Reflexes normal. Course Reevaluation(s) Reevaluation #1: 53-year-old female s/p fall 2 days ago had small left frontal lobe subdural hematoma patient now with GCS of 15, unremarkable normal neuro exam, no headache, head CT showed no worsening of the hematoma, patient was observed in the trauma center 24 hours and she was discharged, patient is okay to be discharged with percussion of return if worsening of her symptoms. Left thigh x-ray shows no acute fracture. Time: 13:40 Medical Decision Making Differential Diagnosis Differential Diagnoses: The differential diagnosis associated with the presentation includes ( Worsening of subdural hematoma, laceration infection, left femur fracture.) Admission/Observation Consideration of admission/observation: Escalation of care including admission/observation considered Independent Interpretation I performed an independent interpretation of an: Plain X-Ray ( left femur x-ray: No acute fracture) and CT Scan ( Head:The thin, hyperdense left frontopar ietal subdural hematoma is redemonstrated and appears unchanged when compared with the December 29, [address]23 CT examination. The collection measures up to 4 mm in maximal thickness. There is minimal mass effect on the adjacent brain parenchyma. There is no s) Radiology Impression Discussion of test interpretation with radiology: I have reviewed the r adiologist's reading. Discharge Plan Discharge Clinical Impression: SDH (subdural hematoma), Contusion of left thigh Patient Disposition: Home, Self-Care Instructions: Intracranial Hematoma (ED), Contusion in Adults (ED) Prescriptions: No Action lisinopril 10 mg tablet 10 mg PO DAILY Qty: 90 1RF loratadine 10 mg tablet 10 mg PO DAILY omeprazole 20 mg capsule,delayed release(DR/EC) 20 mg PO DAILY PRN prednisone 20 mg tablet 20 mg PO DAILY Qty: 18 0RF Rx Instructions: On days 1 through 5 take 2 tablets with breakfast; On days 6 through 10 take 1 tablet with breakfast; On days 11 through 15 take 1/2 tablet with breakfast dextroamphetamine-amphetamine 15 mg tablet 1 tab PO TID Referrals: Geovany Del Castillo MD [Primary Care Provider] - Print Language: Spanish
[2023-12-31 09:43] VITALS: BP 122/76; PULSE 94; RESP 18; O2SAT 97
--- NOTE | 2023-12-31 09:53 | PC.NURSE ---
pt is alert and oriented, skin pwd, respirations even and unlabored, pt reports that about 2 days ago had a fall at home came to [facility], head CT was done and showed hematoma on the left sided of the head-transferee to [facility], d/c home yesterday but last night the pt reports increased pain on the incision site to the left temporal area of the head that is spreading to the left side of the head, also reports left hip/leg pain noticeable old bruising to the leg. no visible face droop,speech clear, left eye lid appears slightly droopy, no hand drift, grasp strong and equal, moving all extremities, pupils reactive to light, denies dizziness and vision changes at this time, vs stable
[2023-12-31 13:24] VITALS: BP 143/94; PULSE 97; RESP 12; TEMP 36.8; O2SAT 100
[2023-12-31 13:54] VITALS: BP 143/94; PULSE 97; RESP 12; TEMP 36.8; O2SAT 100
== END 2023-12-31 13:54 | disposition home or self-care (01) ==
PROVIDERS: Emergency Provider Emergency Medicine; PCP Internal Medicine
DX: S06.5XAA Traumatic subdural hemorrhage with loss of consciousness status unknown, initial encounter (principal); S01.81XA Laceration without foreign body of other part of head, initial encounter; S70.12XA Contusion of left thigh, initial encounter; R51.9 Headache, unspecified; M79.605 Pain in left leg; W18.2XXA Fall in (into) shower or empty bathtub, initial encounter; Y93.E1 Activity, personal bathing and showering; Y92.091 Bathroom in other non-institutional residence as the place of occurrence of the external cause; Y99.8 Other external cause status; Z79.899 Other long term (current) drug therapy
CPT/HCPCS: 70450; 73552; 99284

== ENCOUNTER 2024-04-02 11:57 | Outpatient (REF) | payer BC, SELFPAY ==
--- OUTSIDE RECORDS SUMMARY | 2024-04-02 14:17 | XMS_ITS | Continuity of Care Document ---
Author Organization [facility] Address [address] [facility] [address] [place] [phone] Phone Care Team Providers Care President And Ceo Name Role Phone Unavailable Unavailable Unavailable Procedures Procedure Date EYE PATCHES Advance Directives Directive Yes / No Effective Date File Name No Information Encounters Encounter Description Practice Location Reason(s) For Visit Diagnoses Date Provider Providers Copied on Encounter [facility] , [address] [place] [address], [id number], tel:[phone] [facility] No Information 0 3 No Information Family History Family Member Type Diagnosis Age At Onset No Information Payers Payer name Insurance type Covered constitution party ID Authoriza tion(s) No Information Social History Type Description Quantity Date Captured Comments Sex Female Smoking Status No Information Chief Complaint And Reason For Visit No Information Reason For Referral Reason For Referral No Information History Of Present Illness Encounter Date Complaint History Of Prese nt Illness No Information Functional Status Date Functional Assessmen t No Information Instructions Date Instruction Additional Infor mation No Information Assessments Type Assessment Date No Information Patient Care Teams Name Effective Dates (start - stop) Status Members No Information
== END 2024-04-02 11:58 | disposition home or self-care (01) ==
LOC: HO.MAMMO 11:57
PROVIDERS: PCP Internal Medicine; Visit Provider Internal Medicine
DX: Z12.31 Encounter for screening mammogram for malignant neoplasm of breast (principal)
CPT/HCPCS: 77063; 77067

== ENCOUNTER → 2024-04-02 12:00 | Outpatient (BNV) | payer BC, SELFPAY | PROVIDERS: PCP Internal Medicine; Visit Provider Internal Medicine | DX: Z12.31 Encounter for screening mammogram for malignant neoplasm of breast (principal) | CPT/HCPCS: 77063; 77067 ==